=== PATIENT | female | born 1985 | race Caucasian/White ===

== ENCOUNTER 2018-03-23 15:19 | Emergency (ER) | payer OTHER ==
--- OUTSIDE RECORDS SUMMARY | 2018-03-23 16:03 | XMS REPORT ---
:1985 External Reference #:[id number] Author Organization [facility] Address [address], [address] [place] [address] Phone [phone] Care Team Providers Name Role Phone Ana Rosa Agosto MD Care Team Information Technical Aide Unavailable Ana Rosa Agosto MD Primary Care Physician Unavailable Payers Type Date Identification Numbers Payment Provider Subscriber Commercial Policy Number: [id number] [facility] Иван Soni PayID: [id number] [address] [place] [address] Problems Date Description Provider Status Onset: 03/06/2018 Gastroparesis syndrome Johnson Rai MD Active Onset: 03/06/2018 Atrophic gastritis Johnson Rai MD Active Onset: 03/06/2018 Duodenitis Johnson Rai MD Active Onset: 01/30/2018 Right upper quadrant pain Johnson Rai MD Active Onset: 01/30/2018 Digestive symptom Johnson Rai MD Active Onset: 01/30/2018 Abdominal pain Johnson Rai MD Active Onset: 11/27/2012 Contusion of hand Denis Maloney M.D., Active FACS Onset: 11/27/2012 Hand joint pain Denis Maloney M.D., Active FACS Onset: 11/13/2012 Closed fracture of neck of Denis Maloney M.D., Active metacarpal bone FACS Family History Date Family Member(s) Problem(s) Comments Father due to Kidney Disease () Father Crohn's Disease Father due to Krohns () Father due to Cystic Fibrosis () Mother Celiac Disease Mother IBS colon polyps Social History Type Date Description Comments Marital Status Single Lives With Children Home Environment Lives With mom and her children Diet Patient follows no dietary restrictions 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 tea Allergies, Adverse Reactions, Alerts Date Description Reaction Status Severity Comments 11/13/2012 Lorabid active 01/30/2018 Bee Sting active Medications Medication Date Status Form Strength Qnty SIG Indications Ordering Provider Omeprazole / Active Capsules DR 40mg 1 by mouth Unknown 0000 every day Loratadine / Active Capsules 10mg 1 by mouth Unknown 0000 every day prn Flonase / Active Suspension 50mcg/Act 1 spray Unknown Allergy 0000 each nare Relief every day prn Proair HFA / Active Aerosol 108(90Base take 2 Unknown 0000 ) mcg/Act puffs every 6 hours as needed for shortness of breath. Albuterol / Active Nebulizer (2.5mg/3ML nebulized Unknown Sulfate 0000 ) 0.083% every 4 hours as needed Epipen 2-Lucho / Active Solution 0.3mg/0.3M use as Unknown 0000 Auto-Inject L directed as needed for allergic reaction Prednisone / Active Tablets 5mg take 1 Unknown 0000 tablet by mouth once daily Sucralfate / Active Tablets 1gm 1 po qid Gayatri, 0000 NADEEN Garcia Sumatriptan / Active Tablets 100mg A/D prn Dill, Succinate 0000 headache MD Sasha Amphetamine/D / Hx Caps ER 24HR 20mg Unknown extroamphetam 0000 ine Amphetamine/D // Hx Caps ER 24HR 10mg Unknown extroamphetam 0000 ine Venlafaxine / Hx Caps ER 24HR 300mg Unknown HCL ER 0000 Clonidine HCL / Hx Tablets 0.1mg Unknown 0000 Lorazepam / Hx Tablets 1mg 60tabs Unknown 0000 Ibuprofen 00/00/ Hx Tablets 400mg Unknown 0000 Tramadol HCL / Hx Tablets 50mg A/D prn Unknown 0000 Advair Diskus / Hx Aerosol 250-50mcg/ use 1 Unknown 0000 Dose breath twice a day Vital Signs Date Vital Result Comment 03/06/2018 BP Systolic Sitting Left Arm 112 mmHg BP Diastolic Sitting Left Arm 68 mmHg Heart Rate 78 /min Respiratory Rate 16 /min Height 62 inches 5'2" Weight 130.00 lb BMI (Body Mass Index) 23.8 kg/m2 BSA (Body Surface Area) 1.59 m2 Severance body weight in kilograms 50 01/30/2018 BP Systolic Sitting Left Arm 92 mmHg BP Diastolic Sitting Left Arm 50 mmHg Heart Rate 88 /min Respiratory Rate 16 /min Height 62 inches 5'2" Weight 129.00 lb BMI (Body Mass Index) 23.6 kg/m2 BSA (Body Surface Area) 1.59 m2 Severance body weight in kilograms 50 11/13/2012 BP Systolic Sitting Left Arm 128 mmHg BP Diastolic Sitting Left Arm 70 mmHg Height 62 inches 5'2" Weight 125.00 lb BMI (Body Mass Index) 22.9 kg/m2 Results Test Date Test Result H/L Range Note Laboratory test finding 02/12/2018 Urine HCG NEGATIVE Negative 1, 2 (Qualitative) C-Reactive Protein,Quant 02/05/2018 C-Reactive 3.2 mg/L High <3.0 Protein,Quant Reflex add FT3? N Reflex add FT4? Y TSH Reflex FT4 And/Or FT3 02/05/2018 Thyroid Stim Hormone 0.92 uIU/mL 0.30-4.20 Reflex add FT3? N Reflex add FT4? Y Laboratory test finding 02/05/2018 Sedimentation Rate 1 mm/hr 0-20 3 Celiac Disease Comp AB Profile 02/05/2018 Immunoglobulin A 30 mg/dL Low 87 -352 4 Antigliadin Abs, IgG 2 units 0-19 5 Antigliadin Abs, IgA 1 units 0-19 6 Endomysial IgA Antibody Negative Negative t-Transglutaminase IgA <2 U/mL 0-3 7 t-Transglutaminase IgG <2 U/mL 0-5 8 Laboratory test finding 02/05/2018 Complement C4, Serum 20 mg/dL 14-44 C1 Esterase Inhibitor 30 mg/dL 21-39 9 C1 Esterase Inhibitor Function > 86 %meanno . 10 Laboratory test finding 02/01/2018 Pancreatic Elastase 348.0 ug/g > 200 11, 12 (Pe-1) Fecal Fat, Qualitative 02/01/2018 Fats, Neutral Normal . 11, 13 Fats, Total Normal . 11, 14 Ova & Parasite 02/01/2018 Cryptosporidium Specific NEGATIVE FOR CRY 11, 15 Antigen Screen Ag <SEE NOTE> Giardia Specific Antigen NEGATIVE FOR JOE <SEE NOTE> 11, 16 Stool Culture 02/01/2018 Stool Culture NO ENTERIC PATHO <SEE NOTE> 11, 17 . ................ <SEE NOTE> 11, 18 Note: INCLUDES TESTING <SEE NOTE> 11, 19 . PLESIOMONAS, CAM <SEE NOTE> 11, 20 . ................ <SEE NOTE> 11, 21 . YERSINIA AND VIB <SEE NOTE> 11, 22 . SHOULD BE REQUES <SEE NOTE> 11, 23 Shiga Toxin 1 Antigen SHIGA TOXIN 1 NO <SEE NOTE> 11, 24 Shiga Toxin 2 Antigen SHIGA TOXIN 2 NO <SEE NOTE> 11, 25 Laboratory test 02/01/2018 TSH Reflex FT4 And/Or <pending> 11 finding FT3 Laboratory test 02/01/2018 Sedimentation Rate <pending> 11 finding Ala Delta, 24 Hour 02/01/2018 Delta Ala 3.5 mg/L Undefined 11 Urine Delta Ala 4.6 mg/24hr 0.5-5.1 11, 26 Porphobilinogen,QN,24HR 02/01/2018 Porphobilinogen,QN,Urine 1.3 mg/L 0.0- 2.0 11 Urine Porphobilinogen, 24HR (U) 1.7 mg/24hr High 0.0-1.5 11, 27 Laboratory test finding 02/01/2018 C1 Esterase Inhibitor <pending> 11 Function C1 Esterase Inhibitor <pending> 11 Complement C4, Serum <pending> 11 1 GASTROSCOPY 2 FIRST MORNING SPECIMENS GENERALLY CONTAIN THE HIGHEST CONCENTRATION OF HCG AND ARE RECOMMENDED FOR EARLY DETECTION OF . Method: Quidel QuickVue One-Step Immunoassay 3 Method: Sediplast Modified Westergren 4 Result confirmed on concentration. 5 Negative 0 - 19 Weak Positive 20 - 30 Moderate to Strong Positive >30 6 Negative 0 - 19 Weak Positive 20 - 30 Moderate to Strong Positive >30 7 Negative 0 - 3 Weak Positive 4 - 10 Positive >10 Tissue Transglutaminase (tTG) has been identified as the endomysial antigen. Studies have demonstr- ated that endomysial IgA antibodies have over 99% specificity for gluten sensitive enteropathy. 8 Negative 0 - 5 Weak Positive 6 - 9 Positive >9 9 Performed at: [address] [id number] Head Golf Professional: Peri Lanier MD, Phone: [phone] Performed at: [address] [id number] Head Golf Professional: Calvin Alejandra MD, Phone: [phone] INFCE Result Units: %mean normal Abnormal <41 Equivocal 41 - 67 Normal >67 11 R19.4 12 INFCE Result Units: ug Elast./g Severe Pancreatic Insufficiency: <100 Moderate Pancreatic Insufficiency: 100 - 200 Normal: >200 Performed at: [address] [id number] [employer] Professional: Calvin Alejandra MD, Phone: [phone] Normal (<60 Droplets/HPF) 14 Normal (<100 Droplets/HPF) 15 NEGATIVE FOR CRYPTOSPORIDIUM SPECIFIC ANTIGEN 16 NEGATIVE FOR GIARDIA SPECIFIC ANTIGEN. The specimen will be held for 5 days. Additional testing may be performed upon request if the antigen tests are negative, and the patient is still symptomatic or has traveled to an endemic region. Method: Alere Quik Chek Rapid Membrane Enzyme Immunoassay 17 NO ENTERIC PATHOGENS ISOLATED 18 ................................................... 19 INCLUDES TESTING FOR SALMONELLA, SHIGELLA, AEROMONAS, 20 PLESIOMONAS, CAMPYLOBACTER, AND E. COLI 0157:H7 21 ................................................... 22 YERSINIA AND VIBRIO ARE NOT ROUTINELY SCREENED FOR AND 23 SHOULD BE REQUESTED SEPARATELY NO YERSINIA ISOLATED 24 SHIGA TOXIN 1 NOT DETECTED 25 SHIGA TOXIN 2 NOT DETECTED Method: ImmunoCard STAT/EHEC Rapid Immunochromatographic Assay 26 This test was developed and its performance characteristics determined by [facility]. It has not been cleared or approved by the Food and Drug Administration. Performed at: - [address] [id number] Head Golf Professional: Peri Lanier MD, Phone: [phone] Performed at: [facility] [address] [address] Head Golf Professional: Calvin Alejandra MD 27 This test was developed and its performance characteristics determined by [facility]. It has not been cleared or approved by the Food and Drug Administration. Procedures Date CPT Code Description Status 02/12/2018 89179 EGD With Biopsy Completed 11/27/2012 66965 Radiology, Hand: Minimum Three Views Completed 11/13/2012 41467 FX Metacarpal closed single w/o manipulation Completed Encounters Type Date Location Provider CPT E/M Dx Office Visit 03/06/2018 4:[place] [address] K29.80 K29.50 R10.9 K31.84 Office Visit 01/30/2018 1:15[place] [id number] R10.9 R19.4 R10.11 Office Visit 11/27/2012 10:30a Orthopaedic Office Denis Maloney, 22436 719.44 MDanyell, FACS 923.20 Plan of Care 03/06/2018 - Johnson Rai MDK29.80 Duodenitis without bleedingComments:No evidence of celiac disease on serology but still Gluten Free Diet may be fezpnmugaL66.50 Unspecified chronic gastritis without bleedingComments:Continue Omeprazole for nowR10.9 Unspecified abdominal painNew Labs:Basic Metabolic PanelNew Xrays:CT, Angio Abdomen & PelvisComments:I am concerned of abd pain related to cannabinoid use such as cannabinoid induced gastroparesis and cannabinoid induced hyperemesis syndrome Will need aggressive Pain mgmtK31.84 GastroparesisComments:Concerned of cannabinoid induced gastroparesis Small frequent low fat diet d/w pt and mother
[2018-03-23 16:23] VITALS: BP 94/57
--- NOTE | 2018-03-23 16:35 | UC ---
General HPI - HPI Summary HPI Summary: PT IS C/O PAIN TO HER CENTRAL UPPER STOMACH(POINTS TO EPIGASTRUM) FOR 9 WEEKS. SHE IS UNDER THE CARE OF DR WAY([facility]) WHO IS TXING HER WITH PRILOSEC 40MG DAILY AND ZOFRAN TWICE DAILY. SHE HAD AN ENDOSCOPY [address] SHE STATES HE DX HER WITH CELIAC, GASTRITIS AND GASTRPORESIS. PT STATES SHE WENT TO [facility] 2 WEEKS AGO AND HAD A NORMAL CT AND LABS. YESTERDAY, SHE REPORTS HAVING A BM AND NOTED SOME RED BLOOD WITH IT. SHE HAS HAD NO MORE SINCE THEN. SHE HAS HAD NO VOMITING. dENIES FEVER BUT IS C/O FATIGUE. STATES TRIED TO CALL N AND DR WAY SALES VENDOR BUT HER CALLS WERE NOT RETURNED. - History of Current Complaint Chief Complaint: UCAbdominalPain Stated Complaint: STOMACH ACHE,FEVER Time Seen by Provider: 03/23/18 16:28 Hx Last Menstrual Period: has mirena Pain Intensity: 8 Aggravating: SOLID FOODS BUT LIQUIDS SEEM OK Alleviating: NOTHING Associated Signs & Symptoms: Positive: Abdominal Pain, Headache, Nausea, Weakness. Negative: Diarrhea, Vomiting - Allergy/Home Medications Allergies/Adverse Reactions: Allergies Allergy/AdvReac Type Severity Reaction Status Date / Time bee venom protein (honey bee) Allergy Hives/Diff. Verified 03/23/18 16:30 Breathing/I tching loracarbef [From Lorabid] Allergy Rash Verified 03/23/18 16:30 Home Medications: Home Medications Omeprazole CAP* [Prilosec CAP* 20 MG] 40 mg PO DAILY 03/23/18 [History Confirmed 03/23/18] Ondansetron TAB* [Zofran 4 MG Tab*] 4 mg PO Q6H 03/23/18 [History Confirmed ] PMH/Surg Hx/FS Hx/Imm Hx - Additional Past Medical History Additional PMH: CELIAC DISEASE, GASTRITIS, SARCOIDOSIS, GASTROPORESISI - Surgical History Surgical History: Yes Surgery Procedure, Year, and Place: Tonsillectomy, 1997, [place]. lymphnode removed right side neck - Family History Known Family History: Positive: None, Other - Aunt with Breast Cancer Father with sarcoidosis - Social History Occupation: Employed Full-time Lives: With Family Alcohol Use: Rare Substance Use Type: Marijuana Substance Use Comment - Amount & Last Used: once a week Smoking Status (MU): Heavy Every Day Tobacco Smoker Type: Cigarettes Amount Used/How Often: 1/2 PPD Length of Time of Smoking/Using Tobacco: 12 Years Have You Smoked in the Last Year: Yes Household Exposure Type: Cigarettes - Immunization History Most Recent Influenza Vaccination: not this season Vaccination Up to Date: Yes Review of Systems Constitutional: Fatigue Gastrointestinal: Abdominal Pain Neurological: Weakness All Other Systems Reviewed And Are Negative: Yes Physical Exam Triage Information Reviewed: Yes Appearance: Well-Appearing Vital Signs: Initial Vital Signs Temp 98.3 F 03/23/18 16:16 Pulse 62 03/23/18 16:16 Resp 16 03/23/18 16:16 BP 94/57 03/23/18 16:16 Pulse Ox 100 03/23/18 16:16 Vital Signs Reviewed: Yes Eyes: Positive: Conjunctiva Clear ENT: Positive: Pharynx normal, TMs normal. Negative: Nasal congestion, Nasal drainage Neck: Positive: Supple, Nontender, No Lymphadenopathy Respiratory: Positive: Lungs clear, Normal breath sounds Cardiovascular: Positive: RRR, No Murmur, Brisk Capillary Refill Abdomen Description: Positive: No Organomegaly, Soft, Other: - Mild tenderness over epigastrum. RECTAL: no hemorrhoids or fissures seen. No masses noted. Stool brown but faint + on guiac card.. Negative: Bruit, CVA Tenderness (R), CVA Tenderness (L), Guarding Musculoskeletal: Positive: ROM Intact Neurological: Positive: Alert Psychological: Positive: Age Appropriate Behavior Skin Exam: Normal Course/Dx - Course Course Of Treatment: non toxic. pt refused hcg citing not sexually active. epigatric pain x 9 weeks and already under care of gastroenterolgy. rectal bleeding is new and the guiac card was slightly +, this with the extreme fatigue and weakness-ER transfer advised as I am not able to evaluate with labs here for anemia, liver and pancreatic pathology. pt refusing ER transfer despite risk of worsening, missed diagnosis and failure to tx. states hse will f /u Dr Way in am. - Differential Dx - Multi-Symptom Provider Diagnoses: Fatigue, weakness, rectal bleeding Discharge - Sign-Out/Discharge Documenting (check all that apply): Discharge/Admit/Transfer - Discharge Plan Condition: Stable Disposition: HOME Patient Education Materials: Fatigue (ED), Rectal Bleeding (ED) Referrals: Ana Rosa Agosto MD [Primary Care Provider] - If Needed Johnson Way MD [Medical Doctor] - 1 Day Additional Instructions: FOLLOW UP DR WAY(YOUR GI) FIRST THING IN AM. GO TO THE ER IF YOU CHANGE YOUR MIND - Billing Disposition and Condition Condition: STABLE Disposition: HOME
== END 2018-03-23 17:42 | disposition home or self-care (01) ==
LOC: UCCORT 15:19
DX: R53.83 Other fatigue (principal); R53.1 Weakness; K62.5 Hemorrhage of anus and rectum; F17.210 Nicotine dependence, cigarettes, uncomplicated; Z88.8 Allergy status to other drugs, medicaments and biological substances
CPT/HCPCS: 82270; 99211; G0463

== ENCOUNTER 2018-06-05 20:45 | Emergency (ER) | payer OTHER ==
--- OUTSIDE RECORDS SUMMARY | 2018-06-05 20:50 | XMS REPORT ---
:1985 External Reference #:[id number] Organization [facility] Address [address], [address] [place] [address] Phone [phone] Care Team Providers Name Role Phone Ana Rosa Agosto MD Care Team Information Head And Neck Surgeon Unavailable Ana Rosa Agosto MD Primary Care Physician Unavailable Payers Type Date Identification Numbers Payment Provider Subscriber Commercial Policy Number: [id number] [facility] [place] Иван Soni PayID: [id number] [address] [place] [address] Problems Date Description Provider Status Onset: 03/25/2018 Arthralgia of the pelvic region Johnson Rai MD Active and thigh Onset: 03/25/2018 Hemorrhage of rectum and anus Johnson Rai MD Active Onset: 03/06/2018 Gastroparesis syndrome Johnson Rai MD [...] use Smoking Patient is a current smoker, about 1/2 ppd. also smoke smokes every day marihuana everyday nearly Recreational Drug Use Marijuana Daily Caffeine Current Caffeine User 2 cups coffee daily occ. tea Allergies, Adverse Reactions, Alerts Date Description Reaction Status Severity Comments 11/13/2012 Lorabid active 01/30/2018 Bee Sting active Medications Medication Date Status Form Strength Qnty SIG Indications Ordering Provider Dulcolax 03/25/ Active Tablets DR 5mg 4tabs 4 tablets K62.5 2017 taken flavio Rai MD 8pm the day before the procedure Omeprazole / Active Capsules DR 40mg 1 [...] Unknown 0000 tablet by mouth once daily Sumatriptan / Active Tablets 100mg A/D prn Dill, Succinate 0000 headache MD Sasha Zofran / Active Tablets 4mg 1 by mouth Unknown 0000 three times a day as needed Amphetamine/D / Hx Caps ER 24HR 20mg Unknown extroamphetam 0000 ine Amphetamine/D / Hx Caps ER 24HR 10mg Unknown extroamphetam 0000 ine Venlafaxine / Hx Caps ER 24HR 300mg Unknown HCL ER 0000 Clonidine HCL / Hx Tablets 0.1mg Unknown Lorazepam / Hx Tablets 1mg 60tabs Unknown Ibuprofen / Hx Tablets 400mg Unknown Tramadol HCL / Hx Tablets 50mg A/D prn Unknown Advair Diskus / Hx Aerosol 250-50mcg/ use 1 Unknown 0000 Dose breath twice a day Sucralfate / Hx Tablets 1gm 1 po qid Gayatri, 0000 NADEEN Garcia Vital Signs Date Vital Result Comment 05/18/2018 BP Systolic 108 mmHg BP Diastolic 75 mmHg Body Temperature 98.0 F Heart Rate 72 /min Respiratory Rate 16 /min Height 62 inches 5'2" Weight 128.00 lb BMI (Body Mass Index) 23.4 kg/m2 BSA (Body Surface Area) 1.58 m2 [place] body weight in kilograms 50 O2 % BldC Oximetry 98 % 05/05/2018 BP Systolic 106 mmHg BP Diastolic 69 mmHg Body Temperature 97.5 F Heart Rate 67 /min Respiratory Rate 17 /min Height 62 inches 5'2" Weight 134.00 lb BMI (Body Mass Index) 24.5 kg/m2 BSA (Body Surface Area) 1.61 m2 [place] body weight in kilograms 50 O2 % BldC Oximetry 98 % 03/25/2018 BP Systolic Sitting Left Arm 100 mmHg BP Diastolic Sitting Left Arm 66 mmHg Heart Rate 74 /min Respiratory Rate 16 /min Height 62 inches 5'2" Weight 131.00 lb BMI (Body Mass Index) 24.0 kg/m2 BSA (Body Surface Area) 1.60 m2 [place] body weight in kilograms 50 03/06/2018 BP Systolic Sitting Left Arm 112 mmHg BP Diastolic Sitting Left Arm 68 mmHg Heart Rate 78 /min Respiratory Rate 16 /min Height 62 inches 5'2" Weight 130.00 lb BMI (Body Mass Index) 23.8 kg/m2 BSA (Body Surface Area) 1.59 m2 [place] body weight in kilograms 50 01/30/2018 BP Systolic Sitting Left Arm 92 mmHg BP Diastolic Sitting Left Arm 50 mmHg Heart Rate 88 /min Respiratory Rate 16 /min Height 62 inches 5'2" Weight 129.00 lb BMI (Body Mass Index) 23.6 kg/m2 BSA (Body Surface Area) 1.59 m2 [place] body weight in kilograms 50 11/13/2012 BP Systolic Sitting Left Arm 128 mmHg BP Diastolic Sitting Left Arm 70 mmHg Height 62 inches 5'2" Weight 125.00 lb BMI (Body Mass Index) 22.9 kg/m2 Results Test Date Test Result H/L Range Note Laboratory test finding 04/14/2018 Urine HCG NEGATIVE Negative 1, 2 (Qualitative) Basic Metabolic Panel 03/13/2018 Glucose 99 mg/dL 74-106 3 BUN 10 mg/dL 7-18 3 Creatinine 0.6 mg/dL 0.6-1.3 3 Glom Filtration Rate, Estimate >60 mL/min >60 3 If >60 mL/min >60 3, 4 BUN/Creat 16.6 ratio 3 Sodium 143 mmol/L 136-145 3 Potassium 4.6 mmol/L 3.5-5.1 3 Chloride 106 mmol/L 98-107 3 Carbon Dioxide 28 mmol/L 21-32 3 Anion Gap 9 mEq/L 8-16 3 Calcium 8.6 mg/dL 8.5-10.1 3 Laboratory test 02/12/2018 Urine HCG (Qualitative) NEGATIVE Negative 5, 6 finding C-Reactive 02/05/2018 C-Reactive Protein,Quant 3.2 mg/L High <3.0 Protein,Quant Reflex add FT3? N Reflex add FT4? Y TSH Reflex FT4 And/Or FT3 02/05/2018 Thyroid Stim Hormone 0.92 uIU/mL 0.30-4.20 Reflex add FT3? N Reflex add FT4? Y Laboratory test finding 02/05/2018 Sedimentation Rate 1 mm/hr 0-20 7 Celiac Disease Comp AB Profile 02/05/2018 Immunoglobulin A 30 mg/dL Low 87 -352 8 Antigliadin Abs, IgG 2 units 0-19 9 Antigliadin Abs, IgA 1 units 0-19 10 Endomysial IgA Antibody Negative Negative t-Transglutaminase IgA <2 U/mL 0-3 11 t-Transglutaminase IgG <2 U/mL 0-5 12 Laboratory test finding 02/05/2018 Complement C4, Serum 20 mg/dL 14-44 C1 Esterase Inhibitor 30 mg/dL 21-39 13 C1 Esterase Inhibitor Function > 86 %meanno . 14 Laboratory test finding 02/01/2018 C1 Esterase Inhibitor Function <pending> 15 C1 Esterase Inhibitor <pending> 15 Complement C4, Serum <pending> 15 Laboratory test finding 02/01/2018 Pancreatic Elastase 348.0 ug/g >200 15, 16 (Pe-1) Fecal Fat, Qualitative 02/01/2018 Fats, Neutral Normal . 15, 17 Fats, Total Normal . 15, 18 Ova & Parasite 02/01/2018 Cryptosporidium Specific NEGATIVE FOR CRY 15 , 19 Antigen Screen Ag <SEE NOTE> Giardia Specific Antigen NEGATIVE FOR JOE <SEE NOTE> 15, 20 Stool Culture 02/01/2018 Stool Culture NO ENTERIC PATHO <SEE NOTE> 15, 21 . ................ <SEE NOTE> 15, 22 Note: INCLUDES TESTING <SEE NOTE> 15, 23 . PLESIOMONAS, CAM <SEE NOTE> 15, 24 . ................ <SEE NOTE> 15, 25 . YERSINIA AND VIB <SEE NOTE> 15, 26 . SHOULD BE REQUES <SEE NOTE> 15, 27 Shiga Toxin 1 Antigen SHIGA TOXIN 1 NO <SEE NOTE> 15, 28 Shiga Toxin 2 Antigen SHIGA TOXIN 2 NO <SEE NOTE> 15, 29 Laboratory test finding 02/01/2018 TSH Reflex FT4 And/Or FT3 <pending> 15 Laboratory test finding 02/01/2018 Sedimentation Rate <pending> 15 Ala Delta, 24 Hour 02/01/2018 Delta Ala 3.5 mg/L Undefined 15 Urine Delta Ala 4.6 mg/24hr 0.5-5.1 15, 30 Porphobilinogen,QN,24HR 02/01/2018 Porphobilinogen,QN,Urine 1.3 mg/L 0.0- 2.0 15 Urine Porphobilinogen, 24HR (U) 1.7 mg/24hr High 0.0-1.5 15, 31 1 COLONOSCOPY 2 FIRST MORNING SPECIMENS GENERALLY CONTAIN THE HIGHEST CONCENTRATION OF HCG AND ARE RECOMMENDED FOR EARLY DETECTION OF . Method: Quidel QuickVue One-Step Immunoassay 3 R10.9 4 Note: Persistent reduction for 3 months or more in an eGFR <60 mL/min/1.73 m2 defines CKD. Patients with eGFR values >/=60 mL/min/1.73 m2 may also have CKD if evidence of persistent proteinuria is present. The original MDRD equation for estimated GFR is not valid for patients less than 18 years of age. Additional information may be found at www.kdoqi.org. 5 GASTROSCOPY 6 FIRST MORNING SPECIMENS GENERALLY CONTAIN THE HIGHEST CONCENTRATION OF HCG AND ARE RECOMMENDED FOR EARLY DETECTION OF . Method: Quidel QuickVue One-Step Immunoassay 7 Method: Sediplast Modified Westergren 8 Result confirmed on concentration. 9 Negative 0 - 19 Weak Positive 20 - 30 Moderate to Strong Positive >30 10 Negative 0 - 19 Weak Positive 20 - 30 Moderate to Strong Positive >30 11 Negative 0 - 3 Weak Positive 4 - 10 Positive >10 Tissue Transglutaminase (tTG) has been identified as the endomysial antigen. Studies have demonstr- ated that endomysial IgA antibodies have over 99% specificity for gluten sensitive enteropathy. 12 Negative 0 - 5 Weak Positive 6 - 9 Positive >9 13 Performed at: [address] [id number] [employer] Officer: Peri Lanier MD, Phone: [phone] Performed at: [address] [id number] [employer] Officer: Calvin Alejandra MD, Phone: [phone] INFCE Result Units: %mean normal Abnormal <41 Equivocal 41 - 67 Normal >67 15 R19.4 16 INFCE Result Units: ug Elast./g Severe Pancreatic Insufficiency: <100 Moderate Pancreatic Insufficiency: 100 - 200 Normal: >200 Performed at: [address] [id number] [employer] Officer: Calvin Alejandra MD, Phone: [phone] 17 Normal (<60 Droplets/HPF) 18 Normal (<100 Droplets/HPF) 19 NEGATIVE FOR CRYPTOSPORIDIUM SPECIFIC ANTIGEN 20 NEGATIVE FOR GIARDIA SPECIFIC ANTIGEN. The specimen will be held for 5 days. Additional testing may be performed upon request if the antigen tests are negative, and the patient is still symptomatic or has traveled to an endemic region. Method: Alere Quik Chek Rapid Membrane Enzyme Immunoassay 21 NO ENTERIC PATHOGENS ISOLATED 22 ................................................... 23 INCLUDES TESTING FOR SALMONELLA, SHIGELLA, AEROMONAS, 24 PLESIOMONAS, CAMPYLOBACTER, AND E. COLI 0157:H7 25 ................................................... 26 YERSINIA AND VIBRIO ARE NOT ROUTINELY SCREENED FOR AND 27 SHOULD BE REQUESTED SEPARATELY NO YERSINIA ISOLATED 28 SHIGA TOXIN 1 NOT DETECTED 29 SHIGA TOXIN 2 NOT DETECTED Method: ImmunoCard STAT/EHEC Rapid Immunochromatographic Assay 30 This test was developed and its performance characteristics determined by [facility]. It has not been cleared or approved by the Food and Drug Administration. Performed at: [address] [id number] [employer] Officer: Peri Lanier MD, Phone: [phone] Performed at: [address] [address] [employer] Operations Officer: Calvin Alejandra MD 31 This test was developed and its performance characteristics determined by [facility]. It has not been cleared or approved by the Food and Drug Administration. Procedures Date CPT Code Description Status 04/14/2018 06514 Colonoscopy With Biopsy Completed 02/12/2018 76833 EGD With Biopsy Completed 11/27/2012 76376 Radiology, Hand: Minimum Three Views Completed 11/13/2012 90615 FX Metacarpal closed single w/o manipulation Completed Encounters Type Date Location Provider CPT E/M Dx Office Visit 05/05/2018 10:00a Surgical Office Tyshawn Duncan MD,FACS 38932 K31.84 R10.9 Office Visit 03/25/2018 9:[place] [address] K62.5 R10.9 K31.84 M25.552 Office Visit 03/06/2018 4:15[place] [address] K29.80 K29.50 R10.9 K31.84 Office Visit 01/30/2018 1:15[place] [address] R10.9 R19.4 R10.11 Office Visit 11/27/2012 10:30a Orthopaedic Office Denis Maloney, [address] 719.44 MDanyell, FACS 923.20 Plan of Care 05/18/2018 - Tyshawn Duncan MD,FACSR10.9 Unspecified abdominal painComments: upper GI series suspicious for celiac disease. started on gluten free diet by Dr. Rai. her gastroparesis might improve with healing of the small bowel celiac disease. no acute surgical issues, continueto follow with Dr. Rai. RTC prn
[2018-06-05 21:00] VITALS: BP 107/54
--- NOTE | 2018-06-05 21:19 | UC ---
Lower Extremity/Ankle HPI - HPI Summary HPI Summary: Patient states that she rolled her left foot while wearing heels today. She is complaining of pain to both the inside and outside of her foot. She states she is unable to bear weight. She denies any pain in the ankle. she denies any numbness or tingling in the foot and offers no other complaints. - History of Current Complaint Chief Complaint: UCLowerExtremity Stated Complaint: LEFT ANKLE INJURY Time Seen by Provider: 06/05/18 21:08 Hx Obtained From: Patient Hx Last Menstrual Period: has mirena Onset/Duration: Sudden Onset Pain Intensity: 5 Aggravating Factor(s): Standing, Ambulation Alleviating Factor(s): Rest Able to Bear Weight: No - Allergies/Home Medications Allergies/Adverse Reactions: Allergies Allergy/AdvReac Type Severity Reaction Status Date / Time bee venom protein (honey bee) Allergy Hives/Diff. Verified 06/05/18 21:00 Breathing/I tching loracarbef [From Lorabid] Allergy Rash Verified 06/05/18 21:00 Home Medications: Home Medications Acetaminophen [Acetaminophen Extra Strength] 1,000 mg PO ONCE 06/05/18 [History Confirmed 06/05/18] PMH/Surg Hx/FS Hx/Imm Hx - Additional Past Medical History Additional PMH: Gastroparesis. Osteonecrosis left hip. Sarcoidosis. Celiac disease. Respiratory History: Asthma GI/ History: Gastroesophageal Reflux - Surgical History Surgical History: Yes Surgery Procedure, Year, and Place: Tonsillectomy, 1997, [place]. lymphnode removed right side neck - Family History Known Family History: Positive: None, Other - Aunt with Breast Cancer Father with sarcoidosis - Social History Lives: With Family Alcohol Use: None Substance Use Type: Marijuana Substance Use Comment - Amount & Last Used: daily Smoking Status (MU): Heavy Every Day Tobacco Smoker Type: Cigarettes Amount Used/How Often: 1/2 PPD Length of Time of Smoking/Using Tobacco: 12 Years Have You Smoked in the Last Year: Yes Household Exposure Type: Cigarettes - Immunization History Most Recent Influenza Vaccination: not this season Vaccination Up to Date: Yes Review of Systems Constitutional: Negative Skin: Negative Eyes: Negative ENT: Negative Respiratory: Negative Cardiovascular: Negative Gastrointestinal: Negative Genitourinary: Negative Motor: Negative Neurovascular: Negative Musculoskeletal: Other: - L foot pain Neurological: Negative Psychological: Negative Is Patient Immunocompromised?: No All Other Systems Reviewed And Are Negative: Yes Physical Exam Triage Information Reviewed: Yes Appearance: Well-Appearing Vital Signs: Initial Vital Signs Temp 98.7 F 06/05/18 20:53 Pulse 80 06/05/18 20:53 Resp 17 06/05/18 20:53 BP 107/54 06/05/18 20:53 Pulse Ox 99 06/05/18 20:53 Vital Signs Reviewed: Yes Eyes: Positive: Conjunctiva Clear ENT: Positive: Normal ENT inspection Neck: Positive: Supple, Nontender Respiratory: Positive: Lungs clear, Normal breath sounds Cardiovascular: Positive: RRR, No Murmur Abdomen Description: Positive: Nontender, No Organomegaly, Soft Bowel Sounds: Positive: Present Musculoskeletal: Positive: Other: - Left lower extremity exam: Hip and knee are without deformity or tenderness. The Achilles tendon is intact and nontender. Left ankle is nontender. Left foot is without gross deformity swelling or discoloration however the patient is exquisitely tender to the medial lateral aspects of the proximal foot. The toes have full sensorivascular motor function. Neurological: Positive: Alert Psychological: Positive: Age Appropriate Behavior Skin Exam: Normal Diagnostics - Radiology No standard instances Xray Interpretation: No Acute Changes Radiology Interpretation Completed By: Radiologist - L foot Lower Extremity Course/Dx - Course Course Of Treatment: Radiologist does not appreciate fracture on x-ray. We'll ivon, splint and have patient use crutches along with orthopedic follow-up. - Differential Dx/Diagnosis Provider Diagnoses: Sprain L foot Discharge - Sign-Out/Discharge Documenting (check all that apply): Discharge/Admit/Transfer - Discharge Plan Condition: Stable Disposition: HOME Patient Education Materials: Foot Sprain (ED) Referrals: Ana Rosa Agosto MD [Primary Care Provider] - If Needed Darci Thapa MD [Medical Doctor] - 5 Days Additional Instructions: IVON AND SPLINT UNTIL CLEARED BY ORTHPEDICS - Billing Disposition and Condition Condition: STABLE Disposition: Home
--- NOTE | 2018-06-05 21:35 | RAD ---
INDICATION: Pain at the lateral, mid left foot after inversion type injury COMPARISON: None. TECHNIQUE: 3 views of the left foot were obtained. FINDINGS: The adequately corticated bones are properly aligned. Joint spaces appear maintained. No fracture, dislocation or focal bony abnormality is seen. IMPRESSION: Normal radiograph of the left foot. If the patient's symptoms persist, follow-up imaging is recommended.
== END 2018-06-05 22:12 | disposition home or self-care (01) ==
LOC: UCCORT 20:45
DX: S93.602A Unspecified sprain of left foot, initial encounter (principal); X50.0XXA Overexertion from strenuous movement or load, initial encounter; Y93.01 Activity, walking, marching and hiking; Y92.9 Unspecified place or not applicable; Z88.1 Allergy status to other antibiotic agents; F17.210 Nicotine dependence, cigarettes, uncomplicated
CPT/HCPCS: 99213; G0463

== ENCOUNTER 2018-11-19 14:44 | Emergency (ER) | payer OTHER ==
[2018-11-19 15:35] VITALS: BP 144/77
--- NOTE | 2018-11-19 16:44 | UC ---
UC General HPI - HPI Summary HPI Summary: history of sarcoidosis and is tapering steroids due to development of osteonecrosis of the left hip, currently on 2 mg daily. Here because she has develped an erythematous rash on her anterior chest and forearms, similar to the past when she "had infections" and has usually had an antibiotic. Her right lung hurts, but has no increase in shortness of breath. Sarcoid involvement primarily hepatic and renal, although she has recently had recognition of pulmonary nodules. Niece recently had strep, children tested negative. No increase in cough; last albuterol use was last pm. - History of Current Complaint Chief Complaint: UCRespiratory Stated Complaint: RESPIRATORY COMPLAINT Time Seen by Provider: 11/19/18 16:25 Hx Obtained From: Patient Hx Last Menstrual Period: n/a Onset/Duration: Gradual Onset Timing: Constant Onset Severity: Moderate Current Severity: Moderate Pain Intensity: 7 Associated Signs & Symptoms: Positive: Cough, Other - rash - Allergy/Home Medications Allergies/Adverse Reactions: Allergies Allergy/AdvReac Type Severity Reaction Status Date / Time bee venom protein (honey bee) Allergy Hives/Diff. Verified 11/19/18 15:37 Breathing/I tching loracarbef [From Lorabid] Allergy Rash Verified 11/19/18 15:37 PMH/Surg Hx/FS Hx/Imm Hx - Additional Past Medical History Additional PMH: Sarcoidosis Respiratory History: Other - smoking dependent. - Surgical History Surgical History: Yes Surgery Procedure, Year, and Place: Tonsillectomy, 1997, [place]. lymphnode removed right side neck - Family History Known Family History: Positive: Other - Aunt with Breast Cancer Father with sarcoidosis - Social History Occupation: Disabled Lives: With Family Alcohol Use: None Substance Use Type: Marijuana Substance Use Comment - Amount & Last Used: 6 days ago Smoking Status (MU): Light Every Day Tobacco Smoker Type: Cigarettes Amount Used/How Often: 1/2 PPD Length of Time of Smoking/Using Tobacco: 12 Years Have You Smoked in the Last Year: Yes Household Exposure Type: Cigarettes - Immunization History Most Recent Influenza Vaccination: not this season Vaccination Up to Date: Yes Review of Systems All Other Systems Reviewed And Are Negative: Yes Constitutional: Positive: Fatigue Skin: Positive: Negative Eyes: Positive: Negative ENT: Positive: Other - increase in cervical adenopathy recently. Respiratory: Positive: Cough. Negative: Shortness Of Breath Cardiovascular: Negative: Palpitations, Chest Pain Gastrointestinal: Negative: Abdominal Pain Genitourinary: Positive: Negative Motor: Positive: Negative Neurovascular: Positive: Negative Musculoskeletal: Positive: Negative Neurological: Positive: Headache - pending neurology evaluation of increased headache. Psychological: Positive: Negative Is Patient Immunocompromised?: No Physical Exam Triage Information Reviewed: Yes Appearance: Well-Appearing - mildly anxious, No Pain Distress, Thin Vital Signs: Initial Vital Signs Temp 98.6 F 11/19/18 15:19 Pulse 105 11/19/18 15:19 Resp 18 11/19/18 15:19 BP 144/77 11/19/18 15:19 Pulse Ox 98 11/19/18 15:19 Eyes: Positive: Conjunctiva Clear ENT: Positive: Pharyngeal erythema - past tonsillectomy Neck: Positive: Supple, Nontender, Enlarged Nodes @ - left posterior cervical chain with several palpable mobile nodes. Respiratory: Positive: Lungs clear, Normal breath sounds Neurological: Positive: Alert, Muscle Tone Normal Skin: Positive: Rashes - confluent erythema on the anterior abdomen and forearms. Mildly warm, says not pruritic. Diagnostics - Laboratory Diagnostic Studies Completed/Ordered: Rapid strep negative Course/Dx - Course Course Of Treatment: symptomatic treatment pending labs; strep negative. sarcoidosis - Diagnoses Provider Diagnosis: Viral exanthem, unspecified Discharge - Sign-Out/Discharge Documenting (check all that apply): Patient Departure All imaging exams completed and their final reports reviewed: No Studies - Discharge Plan Condition: Stable Disposition: HOME Patient Education Materials: Viral Exanthem (ED) Referrals: Sasha Sheth MD [Primary Care Provider] - Additional Instructions: Rapid strep was negative, and Dr. Dhillon will be able to review your labs tomorrow. The rash is most likely related to a viral illness. Should you develop shortness of breath or become more ill overnight, please go to the emergency room for evaluation. - Billing Disposition and Condition Condition: STABLE Disposition: Home
[2018-11-20 10:28] LABS: Hematocrit 43 % (35-47); Hemoglobin 14.4 g/dl (12.0-16.0); Mean Corpuscular HGB Conc 33 g/dl (31-36); Mean Corpuscular Hemoglobin 29 pg (27-31); Mean Corpuscular Volume 88 fL (80-97); Mean Platelet Volume 8.1 fL (7.4-10.4); Platelet Count 331 10^3/ul (150-450); Red Cell Distribution Width 13 % (10.5-15); White Blood Count 8.1 10^3/ul (3.5-10.8)
[2018-11-20 10:50] LABS: Albumin 4.5 g/dL (3.2-5.2); Calcium 9.2 mg/dL (8.6-10.3); Potassium 3.8 mmol/L (3.5-5.0); Total Bilirubin 0.3 mg/dL (0.2-1.0)
[2018-11-20 10:56] LABS: Albumin/Globulin Ratio 2.8 (1-3); C Reactive Protein 10.48 mg/L (<8.01); EGFR Non-African American 90.1 (>60); Globulin 1.6 g/dL (2-4); Total Protein 6.1 g/dL (6.4-8.9)
== END 2018-11-19 16:56 | disposition home or self-care (01) ==
LOC: UCCORT 14:44
DX: B09 Unspecified viral infection characterized by skin and mucous membrane lesions (principal); D86.9 Sarcoidosis, unspecified; F17.210 Nicotine dependence, cigarettes, uncomplicated; Z88.8 Allergy status to other drugs, medicaments and biological substances; Z91.030 Bee allergy status
CPT/HCPCS: 36415; 80053; 85027; 86140; 87651; 99211; G0463

== ENCOUNTER 2019-04-12 08:51 | Day surgery (SDC) | payer OTHER ==
[~2019-04-12 08:51] MED LIST: Buffered Lidocaine 1% SYRIN* 1 ML/SYRINGE INTRADERM ONE; Lactated Ringers 1000 ML Bag* 1,000 ML IV SCH; ceFAZolin 2 GM PREMIX in ORs 2 GM/50 ML BAG IVPB ONE
[2019-04-12] MEDS ORDERED: fentaNYL* 50 MCG/ML 2 ML VIAL (100 MCG VIAL) ONE ×3 (09:27→11:59)
[2019-04-12] MEDS ORDERED: Midazolam* 1 MG/ML 2 ML VIAL (2 MG) ONE (09:27)
[2019-04-12] MEDS ORDERED: Levalbuterol 1.25MG/0.5ML NEB ONE (10:07)
[2019-04-12] MEDS ORDERED: Famotidine IV* 10 MG/ML 2 ML (20 mg) ONE (10:08)
[2019-04-12] MEDS ORDERED: Bupivacaine 0.5%* 50 ML VIAL ONE (10:14)
[2019-04-12] MEDS ORDERED: Dexamethasone IV* 4 MG/ML 1 ML (4 MG) ONE (10:36)
[2019-04-12] MEDS ORDERED: Propofol* 10 MG/ML 20 ML BTL ONE (10:36)
[2019-04-12] MEDS ORDERED: Ketorolac INJ* 30 MG/ML 1 ML VIAL ONE (10:36)
[2019-04-12] MEDS ORDERED: Lidocaine 2% PF * 5 ML VIAL ONE (10:36)
[2019-04-12] MEDS ORDERED: Acetaminophen TAB* 325 MG PO PRN (10:51)
[2019-04-12] MEDS ORDERED: PROCHLORPERAZINE INJ 5 MG/ML 2 ML VIAL IV PRN (10:51)
[2019-04-12] MEDS ORDERED: DiMENhydriNATE IV* 50 MG/ML VIAL IV PUSH PRN (10:51)
[2019-04-12] MEDS ORDERED: HYDROcodone/ACETAMIN 5-325 MG* 1 TAB PO PRN ×2 (10:51)
[2019-04-12] MEDS ORDERED: Levalbuterol 0.63MG/3ML NEB* UNIT OF USE INH PRN (10:51)
[2019-04-12] MEDS ORDERED: Ondansetron INJ* 2 MG/ML VIAL IV PRN (10:51)
[2019-04-12] MEDS ORDERED: Naloxone* 0.4 MG/ML 1 ML VIAL IV PRN (10:51)
[2019-04-12] MEDS ORDERED: diPHENhydraMINE IV* 50 MG/ML 1 ml VIAL (BENADRYL) IV PRN (10:51)
[2019-04-12] MEDS: fentaNYL* 50 MCG/ML 2 ML VIAL (100 MCG VIAL) IV PRN ×4 (11:38→12:21)
[2019-04-12] MEDS ORDERED: oxyCODONE TAB* 5 MG TAB ONE (11:52)
[2019-04-12 12:51] VITALS: BP 116/80
--- NOTE | 2019-04-12 21:19 | OP ---
DATE OF OPERATION: 04/12/19 - SDS DATE OF : 89 SURGEON: Mikael Jackson MD ROTOR BALANCER: Alejandra Teixeira PA-C PRE-OP DIAGNOSIS: Prominent painful accessory navicular left mid foot. POST-OP DIAGNOSIS: Prominent painful accessory navicular left mid foot. OPERATIVE PROCEDURE: Advancement left posterior tibial tendon. DESCRIPTION OF PROCEDURE: The patient was taken to the operating room where a longitudinal incision was made from the medial malleolus down to the first cuneiform medially. We explored the posterior tibial tendon at its insertion point. It looked pristine. We reflected the tendon away from the medial border of the navicular, leaving it attached plantar medial distal. We removed the accessory navicular with the 15 blade, but then also an additional 5 to 6 mm of bone medially to reduce the medial prominence. We created 4 different drill holes with an 0.062 C-wire, passing #0 Vicryl through these drill holes, 2 separate sutures to zig zag proximally in the posterior tibial in a position that would bring both the proximal and distal portion down firmly to the navicular. These were tied over the dorsum of the bridge. We then repaired the edges of the tendon with some 2-0 Vicryl as well as a sheath. We irrigated the soft tissues with 3-0 Monocryl and daniel for the skin and a compressive dressing plaster splint was applied. [id number]/[facility] #: [id number] MTDVanessa
== END 2019-04-12 12:57 | disposition home or self-care (01) ==
LOC: OR 08:51
PROVIDERS: ATTEND Orthopaedic Surgery
DX: M76.822 Posterior tibial tendinitis, left leg (principal); Z72.0 Tobacco use; F41.8 Other specified anxiety disorders; D86.89 Sarcoidosis of other sites
CPT/HCPCS: 81025; 88304; 88311; A9270-GY; C1776; J0690; J1100; J1885; J2250; J2704; J3010; J3490

== ENCOUNTER 2019-12-06 18:18 | Emergency (ER) | payer OTHER ==
[2019-12-06 18:56] VITALS: BP 113/76
--- NOTE | 2019-12-06 19:21 | UC ---
Abdominal Pain Female HPI - HPI Summary HPI Summary: 34-year-old female with complicated past medical history including sarcoidosis, gastroparesis with chronic steroid use who presents with mild abdominal discomfort and recurrent respiratory complaints. She believes that over the past week she is slightly worsened with increased productive cough and use of her albuterol. She is concerned she is developing pneumonia she has had pneumonia 2 times in the past.. Patient has had some nausea, decreased appetite for multiple days. Patient recently finished prednisone and azithromycin for recent upper respiratory infection. She also states she has in the past known when she is dehydrated and she is very good at measuring her own illness and states at this time she does not feel clinically dehydrated so that is why she came here and she states if she felt she was dehydrated she will go directly to the emergency room. - History of Current Complaint Chief Complaint: UCRespiratory Stated Complaint: COUGH, VOMITING, DIARRHEA Time Seen by Provider: 12/06/19 19:16 Hx Obtained From: Patient Hx Last Menstrual Period: 9 yrs Pain Intensity: 6 Allergies/Adverse Reactions: Allergies Allergy/AdvReac Type Severity Reaction Status Date / Time bee venom protein (honey bee) Allergy Severe Hives/Diff. Verified 12/06/19 18:57 Breathing/I tching loracarbef [From Lorabid] Allergy Severe Rash Verified 12/06/19 18:57 Home Medications: Home Medications Dextroamphetamine/Amphetamine [Adderall 10 mg-] 1 tab PO DAILY 12/06/19 [ History Confirmed 12/06/19] Hydroxychloroquine TAB* [Plaquenil TAB*] 200 mg PO DAILY 12/06/19 [History Confirmed 12/06/19] To Start Med For Gastroparesis 12/06/19 [History] PMH/Surg Hx/FS Hx/Imm Hx Previously Healthy: Yes Respiratory History: Other - Sarcoidosis GI/ History: Other - Gastroparesis - Surgical History Surgical History: Yes Surgery Procedure, Year, and Place: Tonsillectomy, 1998, [place]. lymphnode removed right side neck 2016. 2 lympnodes removed from right side of neck 2019 - Family History Known Family History: Positive: Other - Aunt with Breast Cancer Father with sarcoidosis - Social History Alcohol Use: None Substance Use Type: Marijuana Substance Use Comment - Amount & Last Used: pen 12/05/2019 Smoking Status (MU): Light Every Day Tobacco Smoker Type: Cigarettes Amount Used/How Often: 1/2 PPD, over 10 years Length of Time of Smoking/Using Tobacco: 12 Years Have You Smoked in the Last Year: Yes Household Exposure Type: Cigarettes - Immunization History Most Recent Influenza Vaccination: not this season Vaccination Up to Date: Yes Review of Systems All Other Systems Reviewed And Are Negative: Yes Constitutional: Positive: Fatigue ENT: Positive: Sinus Congestion Respiratory: Positive: Shortness Of Breath, Cough Gastrointestinal: Positive: Abdominal Pain, Vomiting, Nausea. Negative: Diarrhea Is Patient Immunocompromised?: Yes Physical Exam Triage Information Reviewed: Yes Appearance: Well-Appearing, Well-Nourished Vital Signs: Initial Vital Signs Temp 97.2 F 12/06/19 18:44 Pulse 73 12/06/19 18:44 Resp 20 12/06/19 18:44 BP 113/76 12/06/19 18:44 Pulse Ox 98 12/06/19 18:44 Vital Signs Reviewed: Yes Eye Exam: Normal ENT Exam: Normal ENT: Positive: Hearing grossly normal, Pharynx normal, Nasal congestion, TM dull. Negative: Pharyngeal erythema, TM bulging, TM red, Tonsillar swelling, Tonsillar exudate Dental Exam: Normal Neck exam: Normal Neck: Positive: 1 Respiratory Exam: Normal Respiratory: Positive: Chest non-tender, No respiratory distress, No accessory muscle use, Decreased breath sounds. Negative: Respiratory distress, Crackles, Rhonchi, Stridor Cardiovascular Exam: Normal Abdominal Exam: Normal Musculoskeletal Exam: Normal Neurological Exam: Normal Psychological Exam: Normal Skin Exam: Normal Abd Pain Female Course/Dx - Course Course Of Treatment: 34-year-old female with complicated past medical history of sarcoidosis who recently was treated with Zithromax and an increased prednisone burst. Symptoms did are evolving as she states she feels slightly worsened at this time. She has had pneumonia multiple times in the past. Based on her current clinical symptoms and risk factors he will treat as pneumonia. Vital signs are stable. No respiratory distress. She states she has tolerated doxycycline in the past without any difficulty. We discussed imaging with x-ray at this time but since it would not have a large impact on our treatment plan we will let her go without radiation today. Advised to follow-up with primary care doctor in 3 days. She is aware if any concerns or symptoms that are worsening in regards to her breathing or history of gastroparesis to pain or dehydration to go directly to emergency room. She states she is aware and agreeable to the plan as well as side effects of medications. - Differential Dx/Diagnosis Differential Diagnosis: Constipation, Diverticulitis, Irritable Bowel Syndrome, Pancreatitis, Peptic Ulcer Disease Provider Diagnosis: Pneumonia Discharge ED - Sign-Out/Discharge Documenting (check all that apply): Patient Departure All imaging exams completed and their final reports reviewed: No Studies - Discharge Plan Condition: Good Disposition: HOME Prescriptions: Benzonatate CAP* [Tessalon 100 MG CAP*] 100 mg PO TID PRN #20 cap PRN Reason: Cough Doxycycline Hyclate 100 mg PO BID #20 tablet predniSONE [Prednisone 20 MG TAB] 20 mg PO BID #14 tablet Patient Education Materials: Community Acquired Pneumonia (ED) Forms: *Work Release Referrals: Aundrea Stewart [Primary Care Provider] - 3 Days Additional Instructions: If any concern for symptoms worsening please go to Emergency room - Billing Disposition and Condition Condition: GOOD Disposition: Home
== END 2019-12-06 19:36 | disposition home or self-care (01) ==
LOC: UCCORT 18:18
DX: J18.9 Pneumonia, unspecified organism (principal); D86.9 Sarcoidosis, unspecified; K31.84 Gastroparesis; F17.210 Nicotine dependence, cigarettes, uncomplicated; R09.89 Other specified symptoms and signs involving the circulatory and respiratory systems; R11.2 Nausea with vomiting, unspecified; Z88.8 Allergy status to other drugs, medicaments and biological substances; Z91.030 Bee allergy status; Z79.899 Other long term (current) drug therapy
CPT/HCPCS: 99212; G0463

== ENCOUNTER 2020-01-04 12:32 | Emergency (ER) | payer OTHER ==
--- OUTSIDE RECORDS SUMMARY | 2020-01-04 12:43 | XMS REPORT | Continuity of Care Document ---
:1985 External Reference #:[id number] Author Name Asif Sparks M.D. (transmitted by agent of provider Lisa Rodriguez) Address [address] [place] [address] Care Team Providers Name Role Phone Esvin Morris M.D. 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 [phone] Medicine Problems Description No Information Available Social History Type Date Description Comments Sex Unknown ETOH Use Denies alcohol use Tobacco Use Start: Unknown Patient is a current smoker, smokes every day Tobacco Use Start: Unknown Light tobacco smoker (10 or fewer cigarettes/day) Smoking Status Reviewed: 12/31/19 Light tobacco smoker (10 or fewer cigarettes/day) Exercise Type/Frequency Exercises regularly Allergies, Adverse Reactions, Alerts Active Allergies Reaction Severity Comments Date Lorabid 08/13/2012 Bee Sting 06/10/2018 Medications Active Medications SIG Qnty Indications Ordering Date Provider Nitro-bid apply small amount 30units D84.9 Asif Sparks, 12/31/2019 2% Ointment to webs of digits M.D. as needed for attack of raynaud's Plaquenil 1 by mouth every 45tabs D86.9 Asif Sparks, 11/12/2019 200mg day for 1 week M.D. Tablets then 2 by mouth daily ongoing (to start after your bronchitis has resolved) Loratadine 1 po qday Dill, Sasha, 10mg M.D. Tablets Prednisone 1 po qday Dill, Sasha, 5mg M.D. Tablets Ventolin HFA prn Dill, Sasha, M.D. 108(90Base) mcg/Act Aerosol Fluticasone as directed Dill, Sasha, Propionate M.D. 50mcg/Act Suspension Ondansetron prn Domenic Sasha, 4mg M.D. Tablets Dispers Omeprazole 1 po qday DomenicCathleena, 40mg M.D. Capsules Tylenol Extra 2 by mouth as Unknown Strength needed 500mg Tablets Melatonin 1 tab by mouth Unknown 3mg every night at Capsules bedtime Aspirin Ec take 1 tab by Unknown 325mg daily Tablets DR Suboxone 16 mgs daily Unknown 8-2mg Film Amphetamine-Dextroam take 1 tablet by Unknown phetamine mouth twice a day 10mg Tablets Immunizations CPT Code Status Date Vaccine Reaction Lot # [id number] Given 11/12/2019 Influenza Virus Vaccine, Patient denies ever [id number] Quadrivalent, Split, having a serious Preservative Free reaction to eggs or egg products, ever having a serious reaction or other problem after getting influenza vaccination, ever being diagnosed with Yydufxs-[id number]-[id number], possibility of being , fever or moderate/severe illness today, allergy to latex. Patient verifies "I have read or had explained to me the information about influenza and influenza vaccine. I have had a chance to ask questions that were answered to my satisfaction. I believe I understand the benefits and risks of influenza vaccine and ask that the vaccine be given to me." Patient tolerated injection w/ no immediate adverse effect. Vital Signs Date Vital Result Comment 12/31/2019 11:27am Height 62 inches 5'2" Weight 158.38 lb BP Systolic 82 mmHg BP Systolic Sitting 118 mmHg BP Diastolic Sitting 76 mmHg Body Temperature 98.3 F Pain Level 4 O2 % BldC Oximetry 98 % BMI (Body Mass Index) 29.0 kg/m2 11/12/2019 12:58pm Height 62 inches 5'2" Weight 160.00 lb Heart Rate 69 /min BP Systolic Sitting 111 mmHg LT arm BP Diastolic Sitting 67 mmHg LT arm Respiratory Rate 18 /min Body Temperature 98.2 F O2 % BldC Oximetry 92 % (on room air) BMI (Body Mass Index) 29.3 kg/m2 Results Test Acquired Date Facility Test Result H/L Range Note Laboratory test 11/18/2019 [facility] Erythrocyte Sed 3 mm/Hr Normal 0-[address] [place] [address] [phone] C Reactive Protein 10.26 mg/L High <8.01 2 Immunoglobulins 11/18/2019 [facility] Immunoglobulin G 374 Abnormal 767 - 3 Serum Quant mg/dL [address] [place] [address] [phone] Immunoglobulin M 30 mg/dL Abnormal 37 - 286 Immunoglobulin A 22 mg/dL Abnormal 61 - 356 Laboratory test 11/18/2019 [facility] Vitamin D 34.2 ng/mL Normal 20-[address]) [place] [address] [phone] Vitamin B12 And 11/18/2019 [facility] Vitamin B12 847 pg/mL Normal 180-[address] [place] [address] [phone] Folic Acid (Folate) 19.39 ng/mL >3.99 6 Laboratory test 11/18/2019 [facility] Nuclear AB <1:80 (Negative ) 7 finding (Taisha) [place] [address] Igg [phone] Rheumatoid Factor < 10 IU/mL Normal <15 8 Cyclic Citrullinated Pep Igg <15.6 U 9 Anca AB Ser If 11/18/2019 [facility] C-Anca [place] [address] [phone] P-Anca Negative Negative 10 CBC Auto 11/18/2019 [facility] White Blood 10.4 10^3/uL Normal 3.5-10.[address] [place] [address] [phone] Red Blood Count 5.01 10^6/uL High 3.70-4.87 Hemoglobin 15.3 g/dL Normal 12.0-16.0 Hematocrit 44 % Normal 35-47 Mean Corpuscular Volume 88 fL Normal 80-97 Mean Corpuscular Hemoglobin 31 pg Normal 27-31 Mean Corpuscular HGB Conc 35 g/dL Normal 31-36 Red Cell Distribution Width 14 % Normal 10-15 Platelet Count 442 10^3/uL Normal 150-450 Mean Platelet Volume 7.2 fL Low 7.4-10.4 Abs Neutrophils 6.3 10^3/uL Normal 1.5-7.7 Abs Lymphocytes 2.7 10^3/uL Normal 1.0-4.8 Abs Monocytes 0.9 10^3/uL High 0-0.8 Abs Eosinophils 0.4 10^3/uL Normal 0-0.6 Abs Basophils 0.1 10^3/uL Normal 0-0.2 Abs Nucleated RBC 0.0 10^3/uL Granulocyte % 60.8 % Lymphocyte % 25.4 % Monocyte % 9.0 % Eosinophil % 4.1 % Basophil % 0.7 % Nucleated Red Blood Cells % 0.1 Comp Metabolic 11/18/2019 [facility] Sodium 138 mmol/L Normal 135-[address] [place] [address] [phone] Potassium 4.1 mmol/L Normal 3.5-5.0 Chloride 103 mmol/L Normal 101-111 Co2 Carbon Dioxide 29 mmol/L Normal 22-32 Anion Gap 6 mmol/L Normal 2-11 Glucose 83 mg/dL Normal 70-100 Blood Urea Nitrogen 13 mg/dL Normal 6-24 Creatinine 0.78 mg/dL Normal 0.51-0.95 BUN/Creatinine Ratio 16.7 Normal 8-20 Calcium 9.3 mg/dL Normal 8.6-10.3 Total Protein 6.5 g/dL Normal 6.4-8.9 Albumin 4.7 g/dL Normal 3.2-5.2 Globulin 1.8 g/dL Low 2-4 Albumin/Globulin Ratio 2.6 Normal 1-3 Total Bilirubin 0.30 mg/dL Normal 0.2-1.0 Alkaline Phosphatase 81 U/L Normal 34-104 Alt 11 U/L Normal 7-52 Ast 17 U/L Normal 13-39 Egfr Non- 85.6 >60 Egfr 103.6 >60 11 Laboratory test 11/18/2019 [facility] G6PD Quantitative 9.9 U/ gHb 8.8 - [address] RBC 13.4 [place] [address] [phone] Ssa/SSB Abs Igg 11/18/2019 [facility] SS-A/Ro Antibody <0.2 U [address] [place] [address] [phone] SS-B/La Antibody <0.2 U 14 Protein 11/18/2019 [facility] Total 6.3 g/dL 6.3 - Electrophoresis [address] [facility] Protein(Pep) 7.9 [place] [address] [phone] Albumin 3.6 g/dL 3.4-4.7 Alpha-1 Globulin 0.2 g/dL 0.1-0.3 Alpha-2 Globulin 1.0 g/dL 0.6-1.0 Beta Globulin 1.0 g/dL 0.7-1.2 Gamma Globulin 0.5 g/dL Abnormal 0.6-1.6 Albumin/Globulin Ratio 1.34 Impression See Comment 15 Laboratory test 11/18/2019 [facility] Angiotensin 15 U/L Abnormal 16 - 16 [address] [facility] Converting [address] [place] [address] Enzyme [phone] Cardiolipin 11/18/2019 [facility] Phospholipid Ab < 9.4 17 Igg/Igm [address] [place] [address] IgM, [place] [address] [phone] Phospholipid Ab IgG < 9.4 GPL 18 1 Please check labs this week 2 Please check labs this week 3 Test Performed by: [facility] [place] [address] Treasury Analyst: Calvin Wilson M.D. Ph.D.; CLIA# [id number] 4 Total 25-Hydroxyvitamin D2 and D3 (25-OH-VitD) <10 ng/mL (severe deficiency) 10-19 ng/mL (mild to moderate deficiency) 20-50 ng/mL (optimum levels) 51-80 ng/mL (increased risk of hypercalciuria) >80 ng/mL (toxicity possible) 5 Normal Range 180 to 914 Indeterminate Range 145 to 180 Deficient Range <145 6 Please check labs this week 7 <1:80 (Negative) REFERENCE VALUE <1:80 (Negative) Test Performed by: [facility] [place] [address] Treasury Analyst: Calvin Wilson M.D. Ph.D.; CLIA# [id number] 8 Please check labs this week 9 REFERENCE VALUE <20.0 (Negative) Test Performed by: [facility] [place] [address] Treasury Analyst: Calvin Wilson M.D. Ph.D.; CLIA# [id number] 10 Negative for cANCA and pANCA patterns by immunofluorescence. ADDITIONAL INFORMATION This test was developed and its performance characteristics determined by [facility] in a manner consistent with CLIA requirements. This test has not been cleared or approved by the U.S. Food and Drug Administration. Test Performed by: [facility] [place] [address] Treasury Analyst: Calvin Wilson M.D. Ph.D.; CLIA# [id number] 11 Because ethnic data is not always readily available, this report includes an eGFR for both -Americans and non- Americans. The National Kidney Disease Education Program (NKDEP) does not endorse the use of the MDRD equation for patients that are not between the ages of 18 and 70, are , have extremes of body size, muscle mass, or nutritional status, or are non- or non-. According to the National Kidney Foundation, irrespective of diagnosis, the stage of the disease is based on the level of kidney function: Stage Description GFR(mL/min/1.73 m(2)) 1 Kidney damage with normal or decreased GFR 90 2 Kidney damage with mild decrease in GFR 60-89 3 Moderate decrease in GFR 30-59 4 Severe decrease in GFR 15-29 5 Kidney failure <15 (or dialysis) 12 ADDITIONAL INFORMATION This test was developed and its performance characteristics determined by [facility] in a manner consistent with CLIA requirements. This test has not been cleared or approved by the U.S. Food and Drug Administration. Test Performed by: [facility] [place] [address] Treasury Analyst: Calvin Wilson M.D. Ph.D.; CLIA# [id number] 13 REFERENCE VALUE <1.0 (Negative) 14 REFERENCE VALUE <1.0 (Negative) Test Performed by: [place] [address] Treasury Analyst: Calvin Wilson M.D. Ph.D.; CLIA# [id number] 15 The electrophoresis pattern is hypogammaglobulinemic. Suggest Immunoglobulin Free Light Chain, Serum if clinically indicated. Call [facility] within 7 days to add FLCP to the stored sample. Test Performed by: [place] [address] Treasury Analyst: Calvin Wilson M.D. Ph.D.; CLIA# [id number] 16 Test Performed by: [place] [address] Treasury Analyst: Calvin Wilson M.D. Ph.D.; CLIA# [id number] 17 REFERENCE VALUE <15.0 (Negative) 18 REFERENCE VALUE <15.0 (Negative) Test Performed by: [place] [address] Treasury Analyst: Calvin Wilson M.D. Ph.D.; CLIA# [id number] Procedures Description No Information Available Medical Devices Description No Information Available Encounters Type Date Location Provider Dx Diagnosis Office Visit 11/12/2019 Rheumatology Asif Sparks D86.9 Sarcoidosis, 12:[facility] Silvia unspecified Z79.899 Other ocean transportation intermediary (current) drug therapy R20.8 Other disturbances of skin sensation M06.4 Inflammatory polyarthropathy Z23 Encounter for immunization F17.210 Nicotine dependence, cigarettes, uncomplicated Assessments Date Code Description Provider 12/31/2019 D86.9 Sarcoidosis, unspecified Asif Sparks M.D. 12/31/2019 D84.9 Immunodeficiency, unspecified Asif Sparks M.D. 12/31/2019 Z79.899 [facility] jail (current) drug therapy Asif Sparks M.D. 12/31/2019 R20.8 Other disturbances of skin sensation Asif Sparks M.D. 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 11/12/2019 D86.9 Sarcoidosis, unspecified Asif Sparks M.D. 11/12/2019 Z79.899 Other jail (current) drug therapy Asif Sparks M.D. 11/12/2019 R20.8 Other disturbances of skin sensation Asif Sparks M.D. 11/12/2019 M06.4 Inflammatory polyarthropathy Asif Sparks M.D. 11/12/2019 Z23 Encounter for immunization Asif Sparks M.D. 11/12/2019 F17.210 Nicotine dependence, cigarettes, uncomplicated Asif Sparks M.D. Plan of Treatment Future Appointment(s):03/03/2020 12:20 pm - Asif Sparks M.D. at [facility]12/31/2019 - Asif Sparks M.D.D86.9 Sarcoidosis, qbacdrlhepkL89.9 Immunodeficiency, unspecifiedNew Medication:Nitro-bid 2 % - apply small amount to webs of digits as needed for attack of raynaud'sComments: Congrats for cutting back on smokingReferral:Eleuterio Cook MD, Allergy & amp; FmwkarxclgO62.899 Other jail (current) drug yiedfezP26.8 Other disturbances of skin sunqperatC48.0 Hereditary hypogammaglobulinemiaFollow up: Follow up in 2 months or sooner if needed Functional Status Description No Information Available Mental Status Description No Information Available Referrals Refer to Dr Reason for Referral Status Appt Eleuterio Cook MD Please evaluate and treat patient with Created persistent pneumonia and also low IGG levels; consider IVIG for immunodeficiency [address] [place] [address] [place] [address] [phone] [facility] Monitor for Plaquenil toxicity Sent [address] [place] [address] [phone]
--- OUTSIDE RECORDS SUMMARY | 2020-01-04 12:43 | XMS REPORT | Continuity of Care Document ---
:1985 External Reference #:[id number] Author Name Asif Sparks M.D. (transmitted by agent of provider Lisa Rodriguez) Address [address] [place] [address] Care Team Providers Name Role Phone Esvin Morris M.D. 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 Problems Description No Information Available Social [...] Code Status Date Vaccine Reaction Lot # [id number] Given 11/12/2019 Influenza Virus Vaccine, Patient denies ever [id number] Quadrivalent, Split, having a serious Preservative Free reaction to eggs or egg products, ever having a serious reaction or other problem after getting influenza vaccination, ever being diagnosed with Rrtbyel-Galod-Zlzzbmvi, possibility of being , fever or moderate/severe [...] Result H/L Range Note Laboratory test 11/18/2019 [facility] Erythrocyte Sed 3 mm/Hr Normal 0-[address] [place] [address] [phone] C Reactive Protein 10.26 mg/L High <8.01 2 Immunoglobulins 11/18/2019 [facility] Immunoglobulin G 374 Abnormal 767 - 3 Serum Quant mg/dL [address] [place] [address] [phone] Immunoglobulin M 30 mg/dL Abnormal 37 - 286 Immunoglobulin A 22 mg/dL Abnormal 61 - 356 Laboratory test 11/18/2019 [facility] Vitamin D 34.2 ng/mL Normal 20-[address]) [place] [address] [phone] Vitamin B12 And 11/18/2019 [facility] Vitamin B12 847 pg/mL Normal 180-[address] [place] [address] [phone] Folic Acid (Folate) 19.39 ng/mL >3.99 6 Laboratory test 11/18/2019 [facility] Nuclear AB <1:80 (Negative ) 7 finding (Taisha) [place] [address] Igg [phone] Rheumatoid Factor < 10 IU/mL Normal <15 8 Cyclic Citrullinated Pep Igg <15.6 U 9 Anca AB Ser If 11/18/2019 [facility] C-An[place] [address] [phone] P-Anca Negative Negative 10 CBC Auto 11/18/2019 [facility] White Blood 10.4 10^3/uL Normal 3.5-10.[address] [place] [address] [phone] Red Blood Count 5.01 10^6/uL High 3.70-4.87 [...] Blood Cells % 0.1 Comp Metabolic 11/18/2019 [facility] Sodium 138 mmol/L Normal 135-[address] [place] [address] [phone] Potassium 4.1 mmol/L Normal 3.5-5.0 Chloride 103 [...] Egfr 103.6 >60 11 Laboratory test 11/18/2019 [facility] G6PD Quantitative 9.9 U/ gHb 8.8 - [address] RBC 13.4 [place] [address] [phone] Ssa/SSB Abs Igg 11/18/2019 [facility] SS-A/Ro Antibody <0.2 U [address] [place] [address] [phone] SS-B/La Antibody <0.2 U 14 Protein 11/18/2019 [facility] Total 6.3 g/dL 6.3 - Electrophoresis [address] [facility] Protein(Pep) 7.9 [place] [address] [phone] Albumin 3.6 g/dL 3.4-4.7 Alpha-1 Globulin 0.2 g/dL 0.1-0.3 Alpha-2 Globulin 1.0 g/dL 0.6-1.0 Beta Globulin 1.0 g/dL 0.7-1.2 Gamma Globulin 0.5 g/dL Abnormal 0.6-1.6 Albumin/Globulin Ratio 1.34 Impression See Comment 15 Laboratory test 11/18/2019 [facility] Angiotensin 15 U/L Abnormal 16 - 16 [address] [facility] Con[address] [place] [address] Enzyme [phone] Cardiolipin 11/18/2019 [facility] Phospholipid Ab < 9.4 17 Igg/Igm [address] [place] [address] IgM, [place] [address] [phone] Phospholipid Ab IgG < 9.4 GPL 18 1 Please check labs this week 2 Please check labs this week 3 Test Performed by: [facility] [address] Milking Machine Mechanic: Calvin Wilson M.D. Ph.D.; CLIA# [id number] 4 Total 25-Hydroxyvitamin D2 and D3 (25-OH-VitD) <10 ng/mL (severe deficiency) 10-19 ng/mL (mild to moderate deficiency) 20-50 ng/mL (optimum levels) 51-80 ng/mL (increased risk of hypercalciuria) >80 ng/mL (toxicity possible) 5 Normal Range 180 to 914 Indeterminate Range 145 to 180 Deficient Range <145 6 Please check labs this week 7 <1:80 (Negative) REFERENCE VALUE <1:80 (Negative) Test Performed by: [facility] [place] [address] Milking Machine Mechanic: Calvin Wilson M.D. Ph.D.; CLIA# [id number] 8 Please check labs this week 9 REFERENCE VALUE <20.0 (Negative) Test Performed by: [facility] [place] [address] Milking Machine Mechanic: Calvin Wilson M.D. Ph.D.; CLIA# [id number] 10 Negative for cANCA and pANCA patterns by immunofluorescence. ADDITIONAL INFORMATION This test was developed and its performance characteristics determined by [facility] in a manner consistent with CLIA requirements. This test has not been cleared or approved by the U.S. Food and Drug Administration. Test Performed by: [facility] [place] [address] Milking Machine Mechanic: Calvin Wilson M.D. Ph.D.; CLIA# [id number] 11 Because ethnic data is not always [...] developed and its performance characteristics determined by [facility] in a manner consistent with CLIA requirements. This test has not been cleared or approved by the U.S. Food and Drug Administration. Test Performed by: [facility] [address] Milking Machine Mechanic: Calvin Wilson M.D. Ph.D.; CLIA# [id number] 13 REFERENCE VALUE <1.0 (Negative) 14 REFERENCE VALUE <1.0 (Negative) Test Performed by: [place] [address] Milking Machine Mechanic: Calvin Wilson M.D. Ph.D.; CLIA# [id number] 15 The electrophoresis pattern is hypogammaglobulinemic. Suggest Immunoglobulin Free Light Chain, Serum if clinically indicated. Call [facility] within 7 days to add FLCP to the stored sample. Test Performed by: [place] [address] Milking Machine Mechanic: Calvin Wilson M.D. Ph.D.; CLIA# [id number] 16 Test Performed by: [place] [address] Milking Machine Mechanic: Calvin Wilson M.D. Ph.D.; CLIA# [id number] 17 REFERENCE VALUE <15.0 (Negative) 18 REFERENCE VALUE <15.0 (Negative) Test Performed by: [place] [address] Milking Machine Mechanic: Calvin Wilson M.D. 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 12/31/2019 D84.9 Immunodeficiency, unspecified Asif Sparks M.D. 12/31/2019 Z79.899 Other [facility] (current) drug therapy Asif Sparks M.D. 12/31/2019 R20.8 Other disturbances of skin sensation Asif Sparks M.D. 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 11/12/2019 D86.9 Sarcoidosis, unspecified Asif Sparks M.D. 11/12/2019 Z79.899 Other [facility] (current) drug therapy Asif Sparks M.D. 11/12/2019 R20.8 Other disturbances of skin sensation Asif Sparks M.D. 11/12/2019 M06.4 Inflammatory polyarthropathy Asif Sparks M.D. 11/12/2019 Z23 Encounter for immunization Asif Sparks M.D. 11/12/2019 F17.210 Nicotine dependence, cigarettes, uncomplicated Asif Sparks M.D. Plan of Treatment Future Appointment(s):03/03/2020 12:20 pm - Asif Sparks M.D. at [facility]12/31/2019 - Asif Sparks M.D.D86.9 Sarcoidosis, npgrwazkzxyO40.9 Immunodeficiency, unspecifiedNew Medication:Nitro-bid 2 % - apply small amount to webs of digits as needed for attack of raynaud'sComments: Congrats for cutting back on smokingReferral:Eleuterio Cook MD, Allergy & amp; YzcrxfjwmnX19.899 Other [facility] (current) drug vkmdnjxM48.8 Other disturbances of skin dgrrgctdxQ59.0 Hereditary hypogammaglobulinemiaFollow up: Follow up in 2 months or sooner if needed Functional Status Description No Information Available Mental Status Description No Information Available Referrals Refer to Dr Reason for Referral Status Appt Eleuterio Cook MD Please evaluate and treat patient with Created persistent pneumonia and also low IGG levels; consider IVIG for immunodeficiency [address] [place] [address] [place] [address] [phone] [facility] Monitor for Plaquenil toxicity Sent [address] [place] [address] [phone]
[2020-01-04 13:09] VITALS: BP 124/69
--- NOTE | 2020-01-04 13:31 | UC ---
Throat Pain/Nasal Diogenes HPI - HPI Summary HPI Summary: 34-year-old female with reported history sarcoidosis and chronic steroid use presents with complaints of 3 day history of sore throat. Daughter with similar symptoms who tested positive for strep. Patient states that she was seen here a month ago and treated for pneumonia and has had a persistent cough since that time. She does have history of asthma as well. Patient states that she is scheduled to begin IVIG treatments. Denies fever, chills, ear pain, nasal congestion, dysphagia, chest pain, shortness of breath, abdominal pain, nausea, or vomiting. - History of Current Complaint Chief Complaint: UCRespiratory Stated Complaint: SORE THROAT Time Seen by Provider: 01/04/20 13:26 Hx Last Menstrual Period: unknown Pain Intensity: 6 - Allergies/Home Medications Allergies/Adverse Reactions: Allergies Allergy/AdvReac Type Severity Reaction Status Date / Time bee venom protein (honey bee) Allergy Severe Hives/Diff. Verified 01/04/20 13:00 Breathing/I tching loracarbef [From Lorabid] Allergy Severe Rash Verified 01/04/20 13:00 Home Medications: Home Medications Hydroxychloroquine TAB* [Plaquenil TAB*] 200 mg PO DAILY 01/04/20 [History Confirmed 01/04/20] PMH/Surg Hx/FS Hx/Imm Hx - Additional Past Medical History Additional PMH: Sarcoidosis Respiratory History: Asthma GI/ History: Gastroesophageal Reflux Psychological History: Anxiety, Depression - Surgical History Surgical History: Yes Surgery Procedure, Year, and Place: Tonsillectomy, 1997, [place]. lymphnode removed right side neck 2016. 2 lympnodes removed from right side of neck 2019 - Family History Known Family History: Positive: Other - Aunt with Breast Cancer Father with sarcoidosis - Social History Occupation: Disabled Lives: With Family Alcohol Use: None Substance Use Type: Marijuana Substance Use Comment - Amount & Last Used: pen 12/05/2019 Smoking Status (MU): Light Every Day Tobacco Smoker Type: Cigarettes Amount Used/How Often: 1/2 PPD, over 10 years Length of Time of Smoking/Using Tobacco: 12 Years Have You Smoked in the Last Year: Yes Household Exposure Type: Cigarettes - Immunization History Most Recent Influenza Vaccination: not this season Vaccination Up to Date: Yes Review of Systems All Other Systems Reviewed And Are Negative: Yes Constitutional: Negative: Fever, Chills Eyes: Negative: Drainage, Eye Redness ENT: Positive: Sore Throat. Negative: Ear Ache, Nasal Discharge, Sinus Congestion, Sinus Pain/Tenderness Respiratory: Positive: Cough. Negative: Shortness Of Breath Cardiovascular: Negative: Chest Pain Gastrointestinal: Negative: Abdominal Pain, Vomiting, Nausea Genitourinary: Positive: Negative Musculoskeletal: Positive: Negative Neurological: Positive: Negative Is Patient Immunocompromised?: Yes Physical Exam - Summary Physical Exam Summary: GENERAL APPEARANCE: Alert and cooperative adult female who appears to be in no acute distress. EYES: Conjunctiva clear. No drainage. EARS: External auditory canals and tympanic membranes clear, hearing grossly intact. NOSE: No nasal discharge. THROAT: Pharyngeal erythema. Tonsils surgically absent. Uvula midline. NECK: Neck supple, non-tender without lymphadenopathy. CARDIAC: Normal S1 and S2. No S3, S4 or murmurs. Rhythm is regular. There is no peripheral edema, cyanosis or pallor. Extremities are warm and well perfused. Capillary refill is less than 2 seconds. Peripheral pulses intact. LUNGS: Mild bilateral wheezes. Nonproductive cough. ABDOMEN: Positive bowel sounds. Soft, nondistended, nontender. No guarding or rebound. No masses or hepatosplenomegally. MUSKULOSKELETAL: ROM intact to all extremities. No joint erythema or tenderness. Normal muscular development. Normal gait. SKIN: Skin normal color, texture and turgor with no lesions or eruptions. Triage Information Reviewed: Yes Vital Signs: Initial Vital Signs Temp 98 F 01/04/20 13:04 Pulse 88 01/04/20 13:04 Resp 18 01/04/20 13:04 BP 124/69 01/04/20 13:04 Pulse Ox 96 01/04/20 13:04 Vital Signs Reviewed: Yes Throat Pain/Nasal Course/Dx - Course Course Of Treatment: 34-year-old female with reported history sarcoidosis and chronic steroid use presents with complaints of 3 day history of sore throat. Daughter with similar symptoms who tested positive for strep. Patient states that she was seen here a month ago and treated for pneumonia and has had a persistent cough since that time. She does have history of asthma as well. Patient states that she is scheduled to begin IVIG treatments. Denies fever, chills, ear pain, nasal congestion, dysphagia, chest pain, shortness of breath, abdominal pain, nausea, or vomiting. Afebrile. Vital signs stable. On exam patient had pharyngeal erythema, surgically absent tonsils, no cervical lymphadenopathy, mild bilateral wheezes, nonproductive cough, and otherwise unremarkable exam. Rapid strep test was negative. Reviewed the results with the patient however we discussed that with her exposure to strep and immunocompromised status will go ahead and treat her with a course of amoxicillin 500 mg twice a day as well as recommended symptomatic therapy. She is to follow-up with her primary care provider in 3-5 days if her symptoms are not improving. Anticipatory guidance and warning symptoms reviewed with the patient. Verbalizes understanding and agrees to plan of care. - Differential Dx/Diagnosis Differential Diagnosis/HQI/PQRI: Mononucleosis, Peritonsillar Abscess, Pharyngitis, Tonsillitis, URI Provider Diagnosis: Pharyngitis Discharge ED - Sign-Out/Discharge Documenting (check all that apply): Patient Departure All imaging exams completed and their final reports reviewed: No Studies - Discharge Plan Condition: Stable Disposition: HOME Prescriptions: Amoxicillin 500 mg PO Q12HR 10 Days #20 cap Patient Education Materials: Pharyngitis (ED) Referrals: Aundrea Stewart [Primary Care Provider] - 3 Days (If no improvement.) Additional Instructions: Your rapid strep test in the clinic today was negative however with your exposure to strep and the fact that you are immunocompromised we will treat you with a course of antibiotics. Start amoxicillin 500 mg 1 capsule twice a day for 10 days. Be sure to complete the entire course even if feeling better. After you have been on antibiotics for 3 days, throw out your toothbrush and replace with a new one to prevent reinfection. Drink plenty of fluids to avoid dehydration especially if you are running any fever. Use salt water gargles several times a day. Take over the counter acetaminophen (Tylenol) or ibuprofen (Advil, Motrin) according to directions as needed for pain or fever. You may also use Chloraseptic spray or Cepacol lonzenges according to directions which contain a numbing medication and can provide some temporary relief from your sore throat. Return here or follow up with your primary care provider in 3-5 days if symptoms do not improve. Seek immediate medical attention in the emergency room if you have fever greater than 100.5 F despite taking acetaminophen or ibuprofen, are unable to swallow or develop drooling, are unable to open your mouth fully, are unable to eat or drink, have pain that is not relieved with over the counter pain medication, have any difficulty breathing, or any worsening of symptoms. - Billing Disposition and Condition Condition: STABLE Disposition: Home
== END 2020-01-04 13:49 | disposition home or self-care (01) ==
LOC: UCCORT 12:32
DX: J02.9 Acute pharyngitis, unspecified (principal); D86.9 Sarcoidosis, unspecified; J45.909 Unspecified asthma, uncomplicated; F17.210 Nicotine dependence, cigarettes, uncomplicated; Z79.899 Other long term (current) drug therapy; Z88.8 Allergy status to other drugs, medicaments and biological substances; Z91.030 Bee allergy status
CPT/HCPCS: 87651; 99212; G0463

== ENCOUNTER 2020-01-24 15:44 | Emergency (ER) | payer OTHER ==
--- OUTSIDE RECORDS SUMMARY | 2020-01-24 15:51 | XMS REPORT | Continuity of Care Document ---
:1985 External Reference #:[id number] Author Name Devin Singh PA Address [address] [facility] [facility], [address] [place] [address] Care Team Providers Name Role Phone Sasha Sheth MD - Internal Medicine Care Team Information Reference And Instruction Librarian [phone] Problems Active Problems Provider Date Closed fracture of neck of metacarpal Denis Maloney MD, FACS Onset: bone Hand joint pain Denis Maloney MD, FACS Onset: 11/27/2012 Contusion of hand Denis Maloney MD, FACS Onset: 11/27/2012 Abdominal pain Johnson Rai MD Onset: 01/30/2018 Digestive symptom Johnson Rai MD Onset: 01/30/2018 Right upper quadrant pain Johnson Rai MD Onset: 01/30/2018 Duodenitis Johnson Rai MD Onset: 03/06/2018 Atrophic gastritis Johnson Rai MD Onset: 03/06/2018 Gastroparesis syndrome Johnson Rai MD Onset: 03/06/2018 Hemorrhage of rectum and anus Johnson Rai MD Onset: 03/25/2018 Arthralgia of the pelvic region and Johnson Rai MD Onset: 03/25/2018 thigh Fever Nayla Aguayo M.D. Onset: 08/26/2018 Pain in right arm Nayla Aguayo M.D. Onset: 08/26/2018 Cellulitis Nayla Aguayo M.D. Onset: 08/26/2018 Eruption Nayla Aguayo M.D. Onset: 08/26/2018 Sarcoidosis Nayla Aguayo M.D. Onset: 08/26/2018 Disorder of bursa of shoulder region Alejandra Morelos PA Onset: 09/07/2018 Bicipital tenosynovitis Alejandra Morelos PA Onset: 09/07/2018 Headache Nayla Aguayo M.D. Onset: 09/16/2018 Counseling Nayla Aguayo M.D. Onset: 10/14/2018 Tobacco user Nayla Aguayo M.D. Onset: 10/14/2018 Lymphadenopathy Nayla Aguayo M.D. Onset: 03/01/2019 Hypervolemia Nayla Aguayo M.D. Onset: 03/01/2019 Acute pyelonephritis Nayla Aguayo M.D. Onset: 03/01/2019 Sepsis due to Escherichia coli Nayla Aguayo M.D. Onset: 03/01/2019 Urinary tract infectious disease Nayla Aguayo M.D. Onset: 06/09/2019 Pneumonia Nayla Aguayo M.D. Onset: 06/09/2019 Delay when starting to pass urine Nayla gAuayo M.D. Onset: 06/09/2019 Social History Type Date Description Comments Sex Unknown Cigarette Use Pack Years - 10 Tobacco Use Start: Unknown Current Cigarette Smoker 5-10 Cigarettes Daily Smoking Status Reviewed: 01/17/20 Current Cigarette Smoker 5-10 Cigarettes Daily Smokeless Tobacco Never Used Smokeless Tobacco ETOH Use Has consumed alcohol in the past Tobacco Use Start: Unknown Patient is a current 5-10 cigarettes daily smoker, smokes every also smoke marijuana day twice weekly Recreational Drug Use Marijuana Recreational Drug Use CBD Oil Allergies, Adverse Reactions, Alerts Active Allergies Reaction Severity Comments Date Lorabid 11/13/2012 Bee Sting 01/30/2018 Medications Active Medications SIG Qnty Indications Ordering Provider Date Adderall 1.5 tab by mouth Unknown 20mg Tablets twice a day reference #: [id number] Symbicort inhale two puffs Unknown 80-4.5mcg/Act by mouth twice a Aerosol day . rinse mouth after use Amitriptyline HCL take one tablet by Unknown 50mg mouth at bedtime Tablets Plaquenil 1 by mouth every Unknown 200mg Tablets day Wellbutrin XL 1 by mouth every Unknown 150mg day Tablets ER 24HR Cymbalta 1 by mouth every Unknown 20mg Caps DR morning Part Cranberry 1 by mouth 3 times Unknown 200mg Capsules daily Marijuana use as needed Unknown Aspirin 1 by mouth every Unknown 325mg Tablets DR day Buspirone HCL Aundrea Stewart 10mg Sneha, FUNDRAISING DIRECTOR Tablets Ventolin HFA take 2 puffs every Unknown 108(90Base) 6 hours as needed mcg/Act Aerosol for shortness of breath. Zofran 1 by mouth three Unknown 4mg Tablets times a day as needed Sumatriptan Succinate A/D prn headache Sasha Sheth MD 100mg Tablets Prednisone take 1 tablet by Unknown 10mg Tablets mouth once daily Epipen 2-Lucho use as directed as Unknown 0.3mg/0.3ML needed for Solution Auto-Inject allergic reaction Albuterol Sulfate nebulized every 4 Unknown hours as needed (2.5mg/3ML) 0.083% Nebulizer Flonase Allergy Relief 1 spray each nare Unknown every day prn 50mcg/Act Suspension Loratadine 1 by mouth every Unknown 10mg Capsules day prn Omeprazole 1 by mouth every Unknown 40mg Capsules day DR Immunizations Description No Information Available Vital Signs Date Vital Result Comment 01/17/2020 2:37pm BP Systolic Sitting Left Arm 126 mmHg BP Diastolic Sitting Left Arm 78 mmHg Body Temperature 99.3 F Heart Rate 82 /min Respiratory Rate 16 /min Height 62 inches 5'2" Weight 166.00 lb Pain Level 0 BMI (Body Mass Index) 30.4 kg/m2 BSA (Body Surface Area) 1.77 m2 Avery body weight in kilograms 50 kg O2 Saturation Level with Exercise 96 % 09/07/2019 1:59pm BP Systolic Sitting Left Arm 107 mmHg BP Diastolic Sitting Left Arm 69 mmHg Body Temperature 98.1 F Heart Rate 100 /min Respiratory Rate 16 /min Height 62 inches 5'2" Weight 140.00 lb BMI (Body Mass Index) 25.6 kg/m2 BSA (Body Surface Area) 1.64 m2 Avery body weight in kilograms 50 kg O2 % BldC Oximetry 96 % Results Test Acquired Date Facility Test Result H/L Range Note Urine Dipstick 08/13/2019 [facility] Ua Color yellow Yellow Ua Clarity clear Clear Ua Leuko neg Negative Ua Nitrite neg Negative Ua Urobilinogen 0.2 0.2 - 1.0 E.U./dL Ua Protein neg Negative Ua PH 6.0 Low 6.5-7.5 Ua Blood neg Negative Ua Specific [place] 1.015 1.010-1.030 Ua Ketones neg Negative Ua Bilirubin neg Negative Ua Glucose neg Negative Urine Culture 08/13/2019 [facility] Urine Culture ESCHERICHIA COLI Abnormal [address] [place] [address] [phone] Quantity > 100,000 CFU/mL 2 [id number] 08/13/2019 [facility] Nitrofurantoin <=16 Susceptible [address] [place] [address] [phone] Trimethoprim/Sulfamethoxazole >=320 Resistant Ampicillin >=32 Resistant Cefazolin <=4 Susceptible Ampicillin/Sulbactam 16 Intermediate Ciprofloxacin <=0.25 Susceptible Piperacillin/Tazobactam <=4 Susceptible Ceftazidime <=1 Susceptible Ceftriaxone <=1 Susceptible Cefepime <=1 Susceptible Levofloxacin <=0.12 Susceptible Imipenem <=0.25 Susceptible Gentamicin >=16 Resistant Tobramycin 4 Susceptible Automated 07/22/2019 N2N/CCD Import Automated 0.0 0.0-6.6 eosinophil % eosinophil % Automated basophil 07/22/2019 N2N/CCD Import Automated basophil 0.1 0.0- 1.1 % % Automated blood 07/22/2019 N2N/CCD Import Automated blood 0.7 0.0-5.0 immature immature granulocyte count granulocyte count as perc as percentage of total leukocytes Automated blood 07/22/2019 N2N/CCD Import Automated blood 0.0 < 10/ 100 nucleated nucleated WBC erythrocyte count erythrocyte count as per as percentage of total leukocytes Absolute neutrophil 07/22/2019 N2N/CCD Import Absolute 9.47 High 1.8-7.0 count neutrophil count Automated blood 07/22/2019 N2N/CCD Import Automated blood 1.17 1.0-4.0 lymphocyte count lymphocyte count (number/volume) (number/volume) Blood monocytes 07/22/2019 N2N/CCD Import Blood monocytes 0.36 0.3-0.9 automated count automated count (number/volume) (number/volume) Automated blood 07/22/2019 N2N/CCD Import Automated blood 0.00 0.0-0.5 eosinophil count eosinophil count Automated blood 07/22/2019 N2N/CCD Import Automated blood 0.01 0.0-0.1 basophil count basophil count (number/volume) (number/volume) Automated blood 07/22/2019 N2N/CCD Import Automated blood 0.08 immature immature granulocyte count granulocyte count (number (number/volume) Automated blood 07/22/2019 N2N/CCD Import Automated blood 0.00 nucleated nucleated erythrocyte count erythrocyte count (count (count/volume) Automated leukocyte 07/22/2019 N2N/CCD Import Automated 11.1 High 3.1- 10.7 count leukocyte count (number/volume) (number/volume) Blood erythrocytes 07/22/2019 N2N/CCD Import Blood erythrocytes 4.54 3.90-5.40 automated count automated count (number/volume) (number/volume) Blood hemoglobin 07/22/2019 N2N/CCD Import Blood hemoglobin 13.1 11.6- 15.8 measurement measurement (mass/volume) (mass/volume) Hct VFr Bld Auto 07/22/2019 N2N/CCD Import Hct VFr Bld Auto 41.4 36.0- 46.1 Automated 07/22/2019 N2N/CCD Import Automated 91.2 80.9-99.0 erythrocyte mean erythrocyte mean corpuscular volume corpuscular volume (MCV (MCV) measurement Automated 07/22/2019 N2N/CCD Import Automated 28.9 25.9-32.7 erythrocyte mean erythrocyte mean corpuscular corpuscular hemoglobin hemoglobin (mass per erythrocyte) Automated 07/22/2019 N2N/CCD Import Automated 31.6 30.8-34.3 erythrocyte mean erythrocyte mean corpuscular corpuscular hemoglobin hemoglobin concentration measurement (mass/volume) Automated blood 07/22/2019 N2N/CCD Import Automated blood 349 155-360 platelet count platelet count (count/volume) (count/volume) Automated 07/22/2019 N2N/CCD Import Automated 46.5 36-47 erythrocyte erythrocyte distribution width distribution width Automated 07/22/2019 N2N/CCD Import Automated 13.7 11.7-14.4 erythrocyte erythrocyte distribution width distribution width ratio ratio Automated blood 07/22/2019 N2N/CCD Import Automated blood 9.6 8.9-12.4 platelet mean platelet mean volume measurement volume measurement Automated blood 07/22/2019 N2N/CCD Import Automated blood 85.4 High 40.4- 72.8 neutrophils/100 neutrophils/100 leukocytes leukocytes Automated blood 07/22/2019 N2N/CCD Import Automated blood 10.6 Low 20.0- 42.0 lymphocytes/100 lymphocytes/100 leukocytes leukocytes Automated monocyte 07/22/2019 N2N/CCD Import Automated monocyte 3.2 Low 4.3-13.2 % % Serum or plasma 07/21/2019 N2N/CCD Import Serum or plasma 8.6 8.5-10.1 calcium measurement calcium (mass/volume) measurement (mass/volume) Serum or plasma 07/21/2019 N2N/CCD Import Serum or plasma 7 Low 8-16 anion gap anion gap Co2 SerPl-sCnc 07/21/2019 N2N/CCD Import Co2 SerPl-sCnc 29 21-32 Serum or plasma 07/21/2019 N2N/CCD Import Serum or plasma 105 98-107 chloride chloride measurement measurement Serum or plasma 07/21/2019 N2N/CCD Import Serum or plasma 4.0 3.5-5.1 potassium potassium measurement measurement Sodium SerPl-sCnc 07/21/2019 N2N/CCD Import Sodium SerPl-sCnc 141 136- 145 Serum or plasma 07/21/2019 N2N/CCD Import Serum or plasma 18.7 urea urea nitrogen/creatinine nitrogen/creatinin mass rati e mass ratio GFR/Bsa pred.black 07/21/2019 N2N/CCD Import GFR/Bsa pred.black >60 >60 SerPl MDRD-ArVRat SerPl MDRD-ArVRat Estimated 07/21/2019 N2N/CCD Import Estimated >60 >60 glomerular glomerular filtration rate filtration rate (GFR) non-Afr (GFR) non- Serum or plasma 07/21/2019 N2N/CCD Import Serum or plasma 0.8 0.6-1.3 creatinine creatinine measurement measurement (mass/volum (mass/volume) Serum or plasma 07/21/2019 N2N/CCD Import Serum or plasma 15 7-18 urea nitrogen urea nitrogen measurement measurement (mass/vo (mass/volume) Serum or plasma 07/21/2019 N2N/CCD Import Serum or plasma 142 High 74- 106 glucose measurement glucose (mass/volume) measurement (mass/volume) Anaerobic blood 07/19/2019 N2N/CCD Import Anaerobic blood No Growth culture culture Aerobic blood 07/19/2019 N2N/CCD Import Aerobic blood No Growth culture culture Urine pH 07/18/2019 N2N/CCD Import Urine pH 6.0 Low 6.5-7.5 measurement by measurement by automated test automated test strip strip Urine protein 07/18/2019 N2N/CCD Import Urine protein Negative Negative measurement by measurement by automated test automated test strip strip (mass/volume) Urine urobilinogen 07/18/2019 N2N/CCD Import Urine urobilinogen 0.2 0.2- 1.0 measurement measurement (units/volume) by t (units/volume) by test strip Urine nitrite 07/18/2019 N2N/CCD Import Urine nitrite Negative Negative detection by detection by automated test automated test strip strip Urine leukocyte 07/18/2019 N2N/CCD Import Urine leukocyte Trace High Negative esterase detection esterase detection by automated te by automated test strip Automated urine 07/18/2019 N2N/CCD Import Automated urine None Seen 0-2 sediment sediment erythrocyte count erythrocyte count by micr by microscopy (number/high power field) Urine sediment 07/18/2019 N2N/CCD Import Urine sediment 2-5 0-7 leukocyte count by leukocyte count by microscopy (numb microscopy (number/high power field) Epithelial cells 07/18/2019 N2N/CCD Import Epithelial cells Many None Seen detection in urine detection in urine sediment by li sediment by light microscopy Uric acid crystals 07/18/2019 N2N/CCD Import Uric acid crystals Few None Seen detection in urine detection in urine sediment by sediment by light microscopy Bacteria detection 07/18/2019 N2N/CCD Import Bacteria detection Few None Seen in urine sediment in urine sediment by light micr by light microscopy Amorphous sediment 07/18/2019 N2N/CCD Import Amorphous sediment Small Negative detection in urine detection in urine sediment by sediment by light microscopy Urine human 07/18/2019 N2N/CCD Import Urine human Negative Negative chorionic chorionic gonadotropin (hCG) gonadotropin (hCG) detection detection Serum or plasma 07/18/2019 N2N/CCD Import Serum or plasma 8.0 6.4-8.2 protein measurement protein (mass/volume) measurement (mass/volume) Serum or plasma 07/18/2019 N2N/CCD Import Serum or plasma 4.6 3.4-5.0 albumin measurement albumin (mass/volume) measurement (mass/volume) Serum globulin 07/18/2019 N2N/CCD Import Serum globulin 3.4 1.9-4.3 measurement by measurement by calculation calculation (mass/vo (mass/volume) Serum or plasma 07/18/2019 N2N/CCD Import Serum or plasma 1.4 albumin/globulin albumin/globulin mass ratio mass ratio Serum or plasma 07/18/2019 N2N/CCD Import Serum or plasma 0.3 0.2-1.0 total bilirubin total bilirubin measurement (mass/ measurement (mass/volume) Serum or plasma 07/18/2019 N2N/CCD Import Serum or plasma 33 15-37 aspartate aspartate aminotransferase aminotransferase measure measurement (enzymatic activity/volume) Serum or plasma 07/18/2019 N2N/CCD Import Serum or plasma 25 12-78 alanine alanine aminotransferase aminotransferase measureme measurement (enzymatic activity/volume) Serum or plasma 07/18/2019 N2N/CCD Import Serum or plasma 93 45-117 alkaline alkaline phosphatase phosphatase measurement ( measurement (enzymatic activity/volume) Serum or plasma 07/18/2019 N2N/CCD Import Serum or plasma 699 56-289 lipase measurement lipase measurement (enzymatic acti (enzymatic activity/volume) Serum or plasma 07/18/2019 N2N/CCD Import Serum or plasma 28.0 <125 natriuretic peptide natriuretic B prohormone N peptide B prohormone N-terminal measurement (mass/volume) Serum or plasma 07/18/2019 N2N/CCD Import Serum or plasma <0.015 troponin i.cardiac troponin i.cardiac measurement (ma measurement (mass/volume) Urine color 07/18/2019 N2N/CCD Import Urine color Yellow Yellow determination determination Urine appearance 07/18/2019 N2N/CCD Import Urine appearance Clear Clear determination determination Urine glucose 07/18/2019 N2N/CCD Import Urine glucose Negative Negative measurement by measurement by automated test automated test strip strip (mass/volume) Urine total 07/18/2019 N2N/CCD Import Urine total Negative Negative bilirubin detection bilirubin by automated test detection by automated test strip Urine ketones 07/18/2019 N2N/CCD Import Urine ketones Negative Negative measurement by measurement by automated test automated test strip strip (mass/volume) Specific gravity of 07/18/2019 N2N/CCD Import Specific gravity 1.020 1.010-1.03 Urine by Automated of Urine by 0 test strip Automated test strip Urine hemoglobin 07/18/2019 N2N/CCD Import Urine hemoglobin Negative Negative detection by detection by automated test automated test strip strip 1 ESCHERICHIA COLI 2 > 100,000 CFU/mL Procedures Description No Information Available Medical Devices Description No Information Available Encounters Type Date Location Provider Dx Diagnosis Office Visit 09/07/2019 1:40p GI Kelsea Hinds MD K31.84 Gastroparesis K59.00 Constipation, unspecified Office Visit 08/13/2019 11:00a Urology Devin Singh, PA R30.0 Dysuria K59.00 Constipation, unspecified Assessments Date Code Description Provider 01/17/2020 K31.84 Gastroparesis Devin Singh PA 01/17/2020 K59.00 Constipation, unspecified Deivn Singh PA 09/07/2019 K31.84 Gastroparesis Kelsea Hinds MD 09/07/2019 K59.00 Constipation, unspecified Kelsea Hinds MD 08/13/2019 R30.0 Dysuria Devin Singh PA 08/13/2019 K59.00 Constipation, unspecified Devin Singh PA 07/22/2019 N10 Acute pyelonephritis Jose Reddy FNP 07/22/2019 N39.0 Urinary tract infection, site not specified Jose Reddy FNP 07/22/2019 K59.00 Constipation, unspecified Jose Reddy FNP 07/22/2019 J45.31 Mild persistent asthma with (acute) Jose Reddy FNP exacerbation 07/21/2019 R10.9 Unspecified abdominal pain Margaret Sinha M.D. 07/21/2019 N10 Acute pyelonephritis Jose Reddy FNP 07/21/2019 K59.00 Constipation, unspecified Margaret Sinha M.D. 07/21/2019 N39.0 Urinary tract infection, site not specified Jose Reddy FNP 07/21/2019 Z87.09 Personal history of other diseases of the Jose Reddy FNP respiratory system 07/21/2019 K59.00 Constipation, unspecified Jose Reddy FNP 07/20/2019 N10 Acute pyelonephritis Jose Reddy FNP 07/20/2019 N39.0 Urinary tract infection, site not specified Jose Reddy , APPLIED BEHAVIOR SCIENCE SPECIALIST 07/20/2019 Z87.09 Personal history of other diseases of the Jose Reddy, APPLIED BEHAVIOR SCIENCE SPECIALIST respiratory system 07/20/2019 J45.909 Unspecified asthma, uncomplicated Jose Reddy, APPLIED BEHAVIOR SCIENCE SPECIALIST 07/19/2019 N10 Acute pyelonephritis Jose Reddy, APPLIED BEHAVIOR SCIENCE SPECIALIST 07/19/2019 N39.0 Urinary tract infection, site not specified Jose Reddy , APPLIED BEHAVIOR SCIENCE SPECIALIST 07/19/2019 Z87.09 Personal history of other diseases of the Jose Reddy, APPLIED BEHAVIOR SCIENCE SPECIALIST respiratory system 07/19/2019 J45.909 Unspecified asthma, uncomplicated Jose Reddy, APPLIED BEHAVIOR SCIENCE SPECIALIST 07/18/2019 N10 Acute pyelonephritis Ramiro Mahmood MD 07/18/2019 N39.0 Urinary tract infection, site not specified Ramiro Mahmood MD 07/18/2019 Z87.09 Personal history of other diseases of the Ramiro Mahmood MD respiratory system 07/18/2019 J45.909 Unspecified asthma, uncomplicated Ramiro Mahmood MD Plan of Treatment Future Appointment(s):07/21/2020 1:00 pm - Kelsea Hinds MD at GI01/17/2020 - Devin Singh, PAK31.84 GastroparesisComments:Maintain the gastroparesis diet. Keep her fluids up. Take her time to empty her bowels completely do not push or strain. Follow-up in 3 guihkwZ41.00 Constipation, unspecifiedComments: I will follow up with Dr. Hinds regarding Botox Functional Status Functional Condition Comment Date Status Independent with all ADL's Active Mental Status Description No Information Available Referrals Refer to Dr Reason for Referral Status Appt Date Santhosh Alvarado MD DISCUSSED DOMPERIDONE FOR DX OF GASTROPARESIS, Closed UNABLE TO GET MEDICATION THROUGH THIS OFFICE IT IS NOT FDA APPROVED. [address] [place] [id number] [phone]
--- OUTSIDE RECORDS SUMMARY | 2020-01-24 15:51 | XMS REPORT | Continuity of Care Document ---
:1985 External Reference #:[id number] Author Name Quiana Kan RPA-C (transmitted by agent of provider Eleuterio Cook) Address [address] [place] [address] Care Team Providers Name Role Phone Asif Sparks MD - Rheumatology Care Team Information Hub Lead Esvin Morris - Family Medicine Care Team Information Hub Lead Problems Active Problems Provider Date Candidiasis of mouth Quiana Kan, Onset: 01/18/2020 RPA-C Uncomplicated moderate persistent Quiana Jyar, Onset: 01/18/2020 asthma RPA-C H/O: pneumonia Quiana Kan, Onset: 01/18/2020 RPA-C Common variable agammaglobulinemia Quiana Kan, Onset: 01/18/2020 RPA-C Social History Type Date Description Comments Sex Unknown Tobacco Use Start: Unknown Light tobacco smoker (10 or fewer cigarettes/day) Smoking Status Reviewed: 01/18/20 Light tobacco smoker (10 or fewer cigarettes/day) Allergies, Adverse Reactions, Alerts Active Allergies Reaction Severity Comments Date Bee Sting 01/14/2020 Loracarbef 01/14/2020 Medications Active Medications SIG Qnty Indications Ordering Provider Date Nystatin swish and swallow 150ml B37.0 Alexanrdophselena AAissatou 01/18/2020 5ml by mouth 4x MD Joey [id number]/ML daily x7 days. Suspension retain in mouth as long as possible before swallowing. Cetirizine HCL take one tablet 30tabs J45.40 Alexandrophselena AAissatou 01/18/2020 10mg by mouth every MD Joey Tablets day at bedtime Nitro-bid apply small 30units D84.9 Asif Sparks MD 12/31/2019 2% Ointment amount to webs of digits as needed for attack of raynaud's Plaquenil 1 by mouth every 45tabs D86.9 Asif Sparks MD 11/12/2019 200mg day for 1 week Tablets then 2 by mouth daily ongoing (to start after your bronchitis has resolved) Amitriptyline HCL Unknown 25mg Tablets Bupropion take 1 tablet by Unknown Hydrochloride ER mouth once daily (XL) 150mg Tablets ER 24HR Symbicort 2 puff twice a Unknown day 160-4.5mcg/Act Aerosol Amphetamine-Dextroam take 1 tablet by Unknown phetamine mouth twice a day 10mg Tablets Suboxone 16 mgs daily Unknown 8-2mg Film Aspirin Ec take 1 tab by Unknown 325mg daily Tablets DR Melatonin 1 tab by mouth Unknown 3mg every night at Capsules bedtime Tylenol Extra 2 by mouth as Unknown Strength needed 500mg Tablets Omeprazole 1 po qday Sasha Sheth MD 40mg Capsules Ondansetron prn Sasha Sheth MD 4mg Tablets Dispers Fluticasone as directed Sasha Sheth MD Propionate 50mcg/Act Suspension Ventolin HFA prn Sasha Sheth MD 108(90Base) mcg/Act Aerosol Prednisone 1 po qday aSsha Sheth MD 5mg Tablets Immunizations CPT Code Status Date Vaccine Lot # [id number] Given 01/18/2020 Pneumococcal Vaccine 2Yrs Or Older [id number] Given 11/12/2019 Fluarix Quadrivalent, Preservative Free 0.5mL Vital Signs Date Vital Result Comment 01/18/2020 9:32am BP Systolic 112 mmHg BP Diastolic 76 mmHg Height 62 inches 5'2" Weight 161.00 lb BMI (Body Mass Index) 29.4 kg/m2 Heart Rate 83 /min Respiratory Rate 17 /min Body Temperature 97.9 F O2 % BldC Oximetry 98 % 12/31/2019 11:27am Height 62 inches Weight 158.38 lb BMI (Body Mass Index) 29.0 kg/m2 Body Temperature 98.3 F O2 % BldC Oximetry 98 % Results Test Acquired Date Facility Test Result H/L Range Note Order 01/18/2020 [facility] Nitric Oxide <pending> PFT Supplies <pending> PFT With Bronchodilator <pending> Lab Results 11/18/2019 N2N/CCD Import Erythrocyte Sed Rate 3 mm/Hr 0-19 1 C Reactive Protein 10.26 mg/L High 2 Immunoglobulin G 374 mg/dL Abnormal 767-1590 3 Immunoglobulin M 30 mg/dL Abnormal 37-286 Immunoglobulin A 22 mg/dL Abnormal 61-356 Vitamin D Total 25(Oh) 34.2 ng/mL 20-50 4 Vitamin B12 And Folate 11/18/2019 N2N/CCD Import Vitamin B12 847 pg/mL 180-914 5 Serum Folic Acid (Folate) 19.39 ng/mL 6 Lab Results 11/18/2019 N2N/CCD Import Nuclear AB (Taisha) By Ifa <1:80 ( Negative) 7 Igg Rheumatoid Factor < 10 Iu/ml 8 Cyclic Citrullinated Pep Igg <15.6 U 9 Anca AB Ser If 11/18/2019 N2N/CCD Import C-Anca Negative P-Anca Negative 10 CBC Auto Diff 11/18/2019 N2N/CCD Import White Blood Count 10.4 10^3/uL 3.5-10.8 Red Blood Count 5.01 10^6/uL High 3.70-4.87 Hemoglobin 15.3 g/dL 12.0-16.0 Hematocrit 44 % 35-47 Mean Corpuscular Volume 88 fL 80-97 Mean Corpuscular Hemoglobin 31 pg 27-31 Mean Corpuscular HGB Conc 35 g/dL 31-36 Red Cell Distribution Width 14 % 10-15 Platelet Count 442 10^3/uL 150-450 Mean Platelet Volume 7.2 fL Low 7.4-10.4 Abs Neutrophils 6.3 10^3/uL 1.5-7.7 Abs Lymphocytes 2.7 10^3/uL 1.0-4.8 Abs Monocytes 0.9 10^3/uL High 0-0.8 Abs Eosinophils 0.4 10^3/uL 0-0.6 Abs Basophils 0.1 10^3/uL 0-0.2 Abs Nucleated RBC 0.0 10^3/uL Granulocyte % 60.8 % Lymphocyte % 25.4 % Monocyte % 9.0 % Eosinophil % 4.1 % Basophil % 0.7 % Nucleated Red Blood Cells % 0.1 1 Lab Results 11/18/2019 N2N/CCD Import Sodium 138 mmol/L 135-145 Potassium 4.1 mmol/L 3.5-5.0 Chloride 103 mmol/L 101-111 Co2 Carbon Dioxide 29 mmol/L 22-32 Anion Gap 6 mmol/L 2-11 Glucose 83 mg/dL 70-100 Blood Urea Nitrogen 13 mg/dL 6-24 Creatinine 0.78 mg/dL 0.51-0.95 BUN/Creatinine Ratio 16.7 1 8-20 Calcium 9.3 mg/dL 8.6-10.3 Total Protein 6.5 g/dL 6.4-8.9 Albumin 4.7 g/dL 3.2-5.2 Globulin 1.8 g/dL Low 2-4 Albumin/Globulin Ratio 2.6 1 1-3 Total Bilirubin 0.30 mg/dL 0.2-1.0 Alkaline Phosphatase 81 U/L 34-104 Alt 11 U/L 7-52 Ast 17 U/L 13-39 Egfr Non- 85.6 1 Egfr 103.6 1 11 G6PD Quantitative RBC 9.9 U/gHb 8.8-13.4 12 Ssa/SSB Abs Igg 11/18/2019 N2N/CCD Import SS-A/Ro Antibody <0.2 U 13 SS-B/La Antibody <0.2 U 14 Protein 11/18/2019 N2N/CCD Import Total Protein(Pep) 6.3 g/dL 6.3-7.9 Electrophoresis Albumin 3.6 g/dL 3.4-4.7 Alpha-1 Globulin 0.2 g/dL 0.1-0.3 Alpha-2 Globulin 1.0 g/dL 0.6-1.0 Beta Globulin 1.0 g/dL 0.7-1.2 Gamma Globulin 0.5 g/dL Abnormal 0.6-1.6 Albumin/Globulin Ratio 1.34 1 Impression See Comment 15 Lab Results 11/18/2019 N2N/CCD Import Angiotensin 15 U/L Abnormal 16-85 16 Converting Enzyme Cardiolipin 11/18/2019 N2N/CCD Import Phospholipid Ab < 9.4 17 Igg/Igm IgM, S MPL Phospholipid Ab IgG < 9.4 GPL 18 1 Please check labs this week 2 Please check labs this week 3 Test Performed by: [place] [address] Web Publisher: Calvin Wilson M.D. Ph.D.; CLIA# [id number] 4 Total 25-Hydroxyvitamin D2 and D3 (25-OH-VitD) <10 ng/mL (severe deficiency) 10-19 ng/mL (mild to moderate deficiency) 20-50 ng/mL (optimum levels) 51-80 ng/mL (increased risk of hypercalciuria) >80 ng/mL (toxicity possible) 5 Normal Range 180 to 914 Indeterminate Range 145 to 180 Deficient Range <145 6 Please check labs this week 7 <1:80 (Negative) REFERENCE VALUE <1:80 (Negative) Test Performed by: [facility] [place] [address] Web Publisher: Calvin Wilson M.D. Ph.D.; CLIA# [id number] 8 Please check labs this week 9 REFERENCE VALUE <20.0 (Negative) Test Performed by: [place] [address] Web Publisher: Calvin Wilson M.D. Ph.D.; CLIA# [id number] 10 Negative for cANCA and pANCA patterns by immunofluorescence. ADDITIONAL INFORMATION This test was developed and its performance characteristics determined by [facility] in a manner consistent with CLIA requirements. This test has not been cleared or approved by the U.S. Food and Drug Administration. Test Performed by: [place] [address] Web Publisher: Calvin Wilson M.D. Ph.D.; CLIA# [id number] 11 Because ethnic data is not always [...] its performance characteristics determined by [facility] in a manner consistent with CLIA requirements. This test has not been cleared or approved by the U.S. Food and Drug Administration. Test Performed by: [facility] - [address] [address] Web Publisher: Calvin Wilson M.D. Ph.D.; CLIA# [id number] 13 REFERENCE VALUE <1.0 (Negative) 14 REFERENCE VALUE <1.0 (Negative) Test Performed by: [facility] - [facility] [address] [place] [address] Web Publisher: Calvin Wilson M.D. Ph.D.; CLIA# [id number] 15 The electrophoresis pattern is hypogammaglobulinemic. Suggest Immunoglobulin Free Light Chain, Serum if clinically indicated. Call [facility] within 7 days to add FLCP to the stored sample. Test Performed by: [place] [address] Web Publisher: Calvin Wilson M.D. Ph.D.; CLIA# [id number] 16 Test Performed by: [place] [id number] Web Publisher: Calvin Wilson M.D. Ph.D.; CLIA# [id number] 17 REFERENCE VALUE <15.0 (Negative) 18 REFERENCE VALUE <15.0 (Negative) Test Performed by: [place] [address] Web Publisher: Calvin Wilson M.D. 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 Fenstermacher, immunodeficiencies RPA-C 01/18/2020 Z87.01 Personal history of pneumonia Quiana S. Fenstermacher, (recurrent) RPA-C 01/18/2020 J45.40 Moderate persistent asthma, Quiana S. Fenstermacher, uncomplicated RPA-C 01/18/2020 B37.0 Candidal stomatitis QuianaSERA Hagen Plan of Treatment Future Appointment(s):02/29/2020 2:00 pm - SERA Zhang at [facility]04/18/2020 - Quiana Kan RPA-CD83.8 Other common variable immunodeficienciesComments:Patient with history of pangammaglobulinemia and recurrent infections. I will order CBC w/diff, total immunoglobulins and IgG subclasses. I will check functional immune responses to Tetanus and Diptheria titers. I will check lymphocyte markers, and lymphocyte function as measured by mitogens. I will administer Pneumovax today and check post titer levels in 4-6 weeks.Follow up:6-8 weeks - review immune evaluationImmunizations/Injections: Pneumococcal Vaccine 2Yrs Or Older [id number] Personal history of pneumonia (recurrent)J45.40 Moderate persistent asthma, uncomplicatedNew Medication:Cetirizine HCL 10 mg - take one tablet by mouth every day at bedtimeComments:Patient with moderate-persistent asthma and chronic wheezing. I will increase Symbicort 160/4.5 to 2puffs twice a day. Continue Albuterol Q4 hours as needed for breakthrough coughing, wheezing, chest tightness and/or shortness of breath. Patient also has home nebulizer that she can use for breakthrough symptoms. Patient advised to stop smoking. She will continue with Nicotine gum for now to help with cessation.Follow up:6-8 capuhK32.0 Candidal stomatitisNew Medication:Nystatin 107404 Unit/ML - swish and swallow 5ml by mouth 4x daily x7 days. retain in mouth as long as possible before swallowing.Comments:Patient with oral thrush on today's exam. I will give Nystatin suspension. I have reviewed good oralhygiene and importance of rinsing her mouth after using Symbicort. Functional Status Description No Information Available Mental Status Description No Information Available Referrals Description No Information Available
[2020-01-24 16:44] VITALS: BP 117/70
--- NOTE | 2020-01-24 16:49 | UC ---
FLU HPI - HPI Summary HPI Summary: 34yo female with complex PMH including sarcoidosis, chronic steroid use, asthma , and gastroparesis presenting with "very productive cough," nasal congestion, fever, chills, and body aches x2 days. Patient states she "has no immune system. " Notes mild sob and wheezing. Denies n/v. Decreased appetite. Notes fever of 102 at symptom onset. Taking tylenol for symptom relief. Also states currently being treated for flush caused by steroids and flovent inhaler. Also states she recently was treated for strep and pneumonia within the last month. Notes exposure to flu at home. - History of Current Complaint Chief Complaint: UCGeneralIllness Stated Complaint: NASAL DISCHARGE/COUGH/HEADACHE Hx Obtained From: Patient Hx Last Menstrual Period: IUD Pain Intensity: 4 Pain Scale Used: 0-10 Numeric - Allergy/Home Medications Allergies/Adverse Reactions: Allergies Allergy/AdvReac Type Severity Reaction Status Date / Time bee venom protein (honey bee) Allergy Severe Hives/Diff. Verified 01/04/20 13:00 Breathing/I tching loracarbef [From Lorabid] Allergy Severe Rash Verified 01/04/20 13:00 Home Medications: Home Medications Albuterol HFA INHALER* [Ventolin HFA Inhaler*] 1 - 2 puff INH Q4H PRN 03/22/16 [ History Confirmed 01/24/20] Levonorgestrel (IUD) (NF) [Mirena (NF)] 20 mcg IU ONCE 03/22/16 [History Confirmed 01/24/20] Fluticasone NASAL SPRAY 50MCG* [Flonase NASAL SPRAY 50MCG*] 1 spray BOTH NARES DAILY PRN 09/02/16 [History Confirmed 01/24/20] Omeprazole CAP (NF) [Prilosec CAP* 20 MG] 40 mg PO QAM 03/23/18 [History Confirmed 01/24/20] Ondansetron TAB* [Zofran 4 MG Tab*] 4 mg PO Q6H PRN 03/23/18 [History Confirmed 01/24/20] Acetaminophen [Acetaminophen Extra Strength] 1,000 mg PO BID PRN 06/05/18 [ History Confirmed 01/24/20] Aspirin TAB* [Aspirin 325 MG TAB*] 325 mg PO DAILY 09/23/19 [History Confirmed 01/24/20] Baclofen TAB* [Lioresal TAB*] 10 mg PO DAILY PRN 09/23/19 [History Confirmed ] Budesonide/Formote 160/4.5(NF) [Symbicort 160/4.5 (NF)] 2 puff INH BID 09/23/19 [History Confirmed 01/24/20] DULoxetine DR CAP* [Cymbalta CAP*] 30 mg PO DAILY 09/23/19 [History Confirmed ] EPINEPHrine [Epipen] 0.3 mg IM ONCE PRN 09/23/19 [History Confirmed 01/24/20] predniSONE 10 mg TAB [Deltasone 10 MG TAB*] 10 mg PO DAILY 09/23/19 [History Confirmed 01/24/20] Dextroamphetamine/Amphetamine [Adderall 10 mg-] 2 tab PO DAILY 12/06/19 [ History Confirmed 01/24/20] Hydroxychloroquine TAB* [Plaquenil TAB*] 200 mg PO DAILY 01/04/20 [History Confirmed 01/24/20] Albuterol 2.5MG/3ML (0.083%)* [Ventolin 2.5 MG/3 ML NEB.RUTH ANN*] 2.5 mg INH Q4H PRN 01/24/20 [History Confirmed 01/24/20] Amoxicillin/Clavulanate TAB* [Augmentin TAB 875*] 875 mg PO BID #20 tab [Rx] Cetirizine HCl [Zyrtec] 10 mg PO DAILY 01/24/20 [History Confirmed 01/24/20] PMH/Surg Hx/FS Hx/Imm Hx - Surgical History Surgical History: Yes Surgery Procedure, Year, and Place: Tonsillectomy, 1998, [place]. lymphnode removed right side neck 2016. 2 lympnodes removed from right side of neck 2019 - Family History Known Family History: Positive: Other - Aunt with Breast Cancer Father with sarcoidosis - Social History Alcohol Use: None Substance Use Type: Marijuana Substance Use Comment - Amount & Last Used: pen 12/05/2019 Smoking Status (MU): Light Every Day Tobacco Smoker Type: Cigarettes Amount Used/How Often: 1/2 PPD, over 10 years Length of Time of Smoking/Using Tobacco: 12 Years Have You Smoked in the Last Year: Yes Household Exposure Type: Cigarettes - Immunization History Most Recent Influenza Vaccination: not this season Vaccination Up to Date: Yes Review of Systems All Other Systems Reviewed And Are Negative: Yes Constitutional: Positive: Fever - 102, Chills, Fatigue ENT: Positive: Sinus Congestion Respiratory: Positive: Shortness Of Breath, Cough Cardiovascular: Positive: Negative Gastrointestinal: Positive: Negative Musculoskeletal: Positive: Myalgia Neurological/Mental Status: Positive: Headache Physical Exam - Summary Physical Exam Summary: Vital Signs Reviewed: Yes A+Ox3, no distress Eyes: Conjunctiva Clear ENT: Hearing grossly normal, TM x 2 clear, moist, uvula midline, no exudate, + mild pharyngeal erythema Neck: Positive: Supple Respiratory: Positive: No respiratory distress, No accessory muscle use + expiratory wheezing throughout lung shaw Cardiovascular: RRR nl s1, s2 no m/r Musculoskeletal Exam: SIU x 4 without difficulty Neurological: Positive: Alert Psychological: Positive: age appropriate behavior Skin: Positive: no rash, no ecchymosis Vital Signs: Initial Vital Signs Temp 99.6 F 01/24/20 16:38 Pulse 92 01/24/20 16:38 Resp 16 01/24/20 16:38 BP 117/70 01/24/20 16:38 Pulse Ox 97 01/24/20 16:38 Lab Results 01/24/20 Range/Units 16:52 Influenza A (Rapid) Negative (Negative) Influenza B (Rapid) Negative (Negative) Diagnostics - Radiology CXR Radiology Interpretation Completed By: Radiologist Summary of Radiographic Findings: IMPRESSION: #. LEFT upper lobe pneumonia involving the lingula. Radiographic follow-up after therapy suggested to assess for resolution. #. Elevated lung volumes corresponding with history of obstructive lung disease. Flu Course/Dx - Course Course Of Treatment: Negative rapid flu. CXR revealed left upper lobe pneumonia. Patient VS WNL and well-appearing overall. Diffuse expiratory wheezing noted on lung auscultation. I discussed diagnosis with patient and treated with augmentin. Instructed to continue with symptomatic treatment including use of nebulizer. Instructed to follow up with pcp this week for recheck of symptoms. Instructed to go to ED with any new or worsening symptoms. Patient voiced understanding and agreed with treatment plan. - Differential Dx/Diagnosis Provider Diagnosis: Left upper lobe pneumonia Discharge ED - Sign-Out/Discharge Documenting (check all that apply): Patient Departure All imaging exams completed and their final reports reviewed: Yes - Discharge Plan Condition: Stable Disposition: HOME Prescriptions: Amoxicillin/Clavulanate TAB* [Augmentin TAB 875*] 875 mg PO BID #20 tab Patient Education Materials: Pneumonia (ED) Referrals: Aundrea Stewart [Primary Care Provider] - 3 Days Additional Instructions: As discussed, you have a left upper lobe pneumonia. Take augmentin as prescribed. Continue with your inhaler and nebulizer as needed for shortness of breath. It is very important that you follow up with your primary care provider this week for recheck of symptoms. Go to the emergency room with any new or worsening symptoms. - Billing Disposition and Condition Condition: STABLE Disposition: Home - Attestation Statements Provider Attestation: I was available for consult. This patient was seen by the [facility]. The patient was not presented to, seen by, or examined by me. -Brock
[2020-01-24 17:04] LABS: Influenza A Molecular Negative (Negative); Influenza B Molecular Negative (Negative)
== END 2020-01-24 17:57 | disposition home or self-care (01) ==
LOC: UCCORT 15:44
DX: J18.9 Pneumonia, unspecified organism (principal); J45.909 Unspecified asthma, uncomplicated; D86.9 Sarcoidosis, unspecified; K31.84 Gastroparesis; F17.210 Nicotine dependence, cigarettes, uncomplicated; Z91.030 Bee allergy status; Z88.8 Allergy status to other drugs, medicaments and biological substances; Z79.82 Long term (current) use of aspirin; Z79.51 Long term (current) use of inhaled steroids; Z79.899 Other long term (current) drug therapy
CPT/HCPCS: 71046; 99212; G0463